=== PATIENT | female | born 1985 | race American Indian/Alaskan Native ===

== ENCOUNTER 2017-02-13 09:11 | Emergency (ER) | payer OTHER ==
[2017-02-13 09:13] VITALS: BMI 22.6
[2017-02-13 09:15] VITALS: BP 117/77; PULSE 111; RESP 19; TEMP 98.3; O2SAT 99
--- NOTE | 2017-02-13 11:13 | ED PDOC ---
HPI: Female Pain Time Seen by Provider: 02/13/17 09:33 Chief Complaint (Nursing): Abdominal Pain Chief Complaint (Provider): dysuria History Per: Patient History/Exam Limitations: no limitations Onset/Duration Of Symptoms: Days (x 1 week) Current Symptoms Are (Timing): Intermittent Episodes Additional Complaint(s): Jaleel Perdomo is a 31 year old female, with no previous medical history, who presents to the ED with complaints of dysuria associated with lower abdominal pain by her scar intermittently ongoing for the past week. Patient reports also developing dark vaginal spotting yesterday which resolved spontaneously. She denies any hematuria, discharge, nausea, vomiting or fevers. Patient states taking aspirin for pain with relief. PMD: none provided Last Menstral Period: January 17, 2017 Past Medical History Reviewed: Historical Data, Nursing Documentation, Vital Signs Vital Signs: Last Vital Signs Temp 98.3 F 02/13/17 09:13 Pulse 111 H 02/13/17 09:13 Resp 19 02/13/17 09:13 BP 117/77 02/13/17 09:13 Pulse Ox 99 02/13/17 09:13 - Medical History PMH: HTN, Chronic Kidney Disease - Surgical History Surgical History: - Family History Family History: States: Unknown Family Hx - Home Medications Home Medications: Ambulatory Orders Medication Instructions Recorded Cyclobenzaprine [Cyclobenzaprine 10 mg PO Q8 PRN #30 tab 08/28/16 HCl] Tramadol HCl [Ultram] 50 mg PO BID PRN #14 tablet 08/28/16 amLODIPine [Norvasc] 5 mg PO DAILY 08/28/16 amLODIPine [Norvasc] 5 mg PO DAILY #14 tab 08/28/16 - Allergies Allergies/Adverse Reactions: Allergies Allergy/AdvReac Type Severity Reaction Status Date / Time No Known Allergies Allergy Verified 05/23/15 16:54 Review of Systems ROS Statement: Except As Marked, All Systems Reviewed And Found Negative Constitutional: Negative for: Fever Gastrointestinal: Positive for: Abdominal Pain. Negative for: Nausea, Vomiting , Diarrhea Genitourinary Female: Positive for: Dysuria. Negative for: Hematuria Physical Exam - Reviewed Nursing Documentation Reviewed: Yes Vital Signs Reviewed: Yes - Physical Exam Appears: Positive for: Well, Non-toxic, No Acute Distress Head Exam: Positive for: ATRAUMATIC, NORMAL INSPECTION, NORMOCEPHALIC Skin: Positive for: Normal Color, Warm, Dry Cardiovascular/Chest: Positive for: Regular Rate, Rhythm Respiratory: Positive for: Normal Breath Sounds Gastrointestinal/Abdominal: Positive for: Bowel Sounds, Soft, Tenderness (mild LLQ sand suprapubic ). Negative for: Mass, Distended, Guarding, Rebound Neurologic/Psych: Positive for: Alert, Oriented - ECG O2 Sat by Pulse Oximetry: 99 (RA) Pulse Ox Interpretation: Normal Medical Decision Making Medical Decision Making: Initial Impression: UTI premenstrual pain, ovarian torsion Initial Plan: * urine dipstick * urine * US pelvis/transvag * Motrin 600 mg PO * reevaluation 11:40 Notified by RN that pt eloped after having ultrasound. Scribe Attestation: Documented by Gloria Francisco, acting as a scribe for Gloria Garcia MD. Provider Scribe Attestation: All medical record entries made by the Scribe were at my direction and personally dictated by me. I have reviewed the chart and agree that the record accurately reflects my personal performance of the history, physical exam, medical decision making, and the department course for this patient. I have also personally directed, reviewed, and agree with the discharge instructions and disposition.
== END 2017-02-13 12:00 | disposition left against medical advice (07) ==
LOC: H.ER 09:11
DX: N39.0 Urinary tract infection, site not specified (principal); N83 Noninflammatory disorders of ovary, fallopian tube and broad ligament; R10.9 Unspecified abdominal pain

== ENCOUNTER 2017-05-16 08:57 | Emergency (ER) | payer OTHER ==
[2017-05-16 09:14] VITALS: BMI 22.4
[2017-05-16 09:17] VITALS: BP 141/104; PULSE 73; RESP 20; TEMP 96.7; O2SAT 100
--- NOTE | 2017-05-16 09:54 | ED PDOC ---
HPI: CCC, URI, Sore Throat Time Seen by Provider: 05/16/17 09:30 Chief Complaint (Nursing): Cough, Cold, Congestion Chief Complaint (Provider): Nasal congestion History Per: Patient History/Exam Limitations: no limitations Onset/Duration Of Symptoms: Days Associated Symptoms: Nasal Congestion. denies: Fever, Sore Throat, Cough Additional Complaint(s): Patient is a 31 y/o female with a past medical history of hypertension presenting to the emergency department for nasal congestion ongoing for several days. Patient may have allergies but denies taking any medication. Also denies sore throat, fever, cough, headache, shortness of breath, or other complaints. PCP: none provided. Past Medical History Reviewed: Historical Data, Nursing Documentation, Vital Signs Vital Signs: Last Vital Signs Temp 96.7 F L 05/16/17 09:16 Pulse 73 05/16/17 09:16 Resp 20 05/16/17 09:16 BP 141/104 H 05/16/17 09:16 Pulse Ox 100 05/16/17 10:01 - Medical History PMH: HTN, Chronic Kidney Disease - Surgical History Surgical History: - Family History Family History: States: Unknown Family Hx - Social History Current smoker - smoking cessation education provided: Yes Ex-Smoker (has not smoked in the last 12 months): No Alcohol: Social Drugs: Denies - Home Medications Home Medications: Ambulatory Orders Medication Instructions Recorded Cyclobenzaprine [Cyclobenzaprine 10 mg PO Q8 PRN #30 tab 08/28/16 HCl] Tramadol HCl [Ultram] 50 mg PO BID PRN #14 tablet 08/28/16 amLODIPine [Norvasc] 5 mg PO DAILY 08/28/16 amLODIPine [Norvasc] 5 mg PO DAILY #14 tab 08/28/16 DiphenhydrAMINE [Benadryl] 25 mg PO HS #20 cap 05/16/17 Fluticasone Nasal [Flonase] 1 actuation NS DAILY #1 spr 05/16/17 - Allergies Allergies/Adverse Reactions: Allergies Allergy/AdvReac Type Severity Reaction Status Date / Time No Known Allergies Allergy Verified 05/16/17 09:27 Review of Systems ROS Statement: Except As Marked, All Systems Reviewed And Found Negative Constitutional: Negative for: Fever ENT: Positive for: Nose Congestion Respiratory: Negative for: Cough, Shortness of Breath Neurological: Negative for: Headache Physical Exam - Reviewed Nursing Documentation Reviewed: Yes Vital Signs Reviewed: Yes - Physical Exam Appears: Positive for: Well, Non-toxic, No Acute Distress Head Exam: Positive for: ATRAUMATIC, NORMAL INSPECTION, NORMOCEPHALIC Skin: Positive for: Normal Color, Warm, Dry Eye Exam: Positive for: Normal appearance ENT: Positive for: Normal ENT Inspection, Nasal Congestion. Negative for: Pharyngeal Erythema, Tonsillar Exudate Cardiovascular/Chest: Positive for: Regular Rate, Rhythm Respiratory: Negative for: Accessory Muscle Use, Respiratory Distress Extremity: Positive for: Normal ROM Neurologic/Psych: Positive for: Alert, Oriented (x3) - ECG O2 Sat by Pulse Oximetry: 100 (RA) Pulse Ox Interpretation: Normal Medical Decision Making Medical Decision Making: Time: 09:50 Initial impression: Nasal congestion. Allergic rhinitis. Initial plan: 25 mg of Benadryl 09:52 Upon provider reevaluation patient is feeling better, is medically stable, and requires no further treatment in the ED at this time. Patient will be discharged with Rx for Benadryl and Flonase. Counseling was provided and all questions were answered regarding diagnosis. There is agreement to discharge plan. Return symptoms persist or worsen. Clinical Impression: Rhinitis. Scribe Attestation: Documented by Swati Escobedo, acting as a scribe for Rita Tavarez MD. Provider Scribe Attestation: All medical record entries made by the Scribe were at my direction and personally dictated by me. I have reviewed the chart and agree that the record accurately reflects my personal performance of the history, physical exam, medical decision making, and the department course for this patient. I have also personally directed, reviewed, and agree with the discharge instructions and disposition. Disposition - Clinical Impression Clinical Impression: Rhinitis - Patient ED Disposition Is Patient to be Admitted: No - Disposition Referrals: [facility] [Outside] Disposition: Routine/Home Disposition Time: 09:52 Condition: STABLE Additional Instructions: Follow up with your PCP in 2-3 days. Prescriptions: DiphenhydrAMINE [Benadryl] 25 mg PO HS #20 cap Fluticasone Nasal [Flonase] 1 actuation NS DAILY #1 spr Instructions: Allergic Rhinitis (ED) Forms: [employer] (Kyrgyz)
== END 2017-05-16 10:05 | disposition home or self-care (01) ==
LOC: H.ER 08:57
DX: J30.9 Allergic rhinitis, unspecified (principal); I12.9 Hypertensive chronic kidney disease with stage 1 through stage 4 chronic kidney disease, or unspecified chronic kidney disease

== ENCOUNTER 2017-09-02 07:40 | Emergency (ER) | payer OTHER ==
[2017-09-02] MEDS ORDERED: Sodium Chloride 0.9% 1,000 ML IV STA (07:51)
[2017-09-02 07:55] VITALS: RESP 18; TEMP 98; O2SAT 99
--- NOTE | 2017-09-02 08:00 | ED PDOC ---
HPI: Abdomen Time Seen by Provider: 09/02/17 07:43 Chief Complaint (Nursing): Abdominal Pain Chief Complaint (Provider): Abdominal Pain History Per: Patient History/Exam Limitations: no limitations Onset/Duration Of Symptoms: Days (x 3) Additional Complaint(s): Jaleel is a 32 y/o female with a history of hypertension who presents to the ED c/o epigastric pain for the past 3 days with associated nausea and vomiting. Patient denies diarrhea or fever. She takes aspirin daily. PMD: Dr. Paul Kasper Past Medical History Reviewed: Historical Data, Nursing Documentation, Vital Signs Vital Signs: Last Vital Signs Temp 98 F 09/02/17 07:50 Pulse 80 09/02/17 07:50 Resp 18 09/02/17 07:50 BP 125/94 H 09/02/17 07:50 Pulse Ox 99 09/02/17 08:05 - Medical History PMH: HTN Denies: Chronic Kidney Disease - Surgical History Surgical History: - Family History Family History: States: Unknown Family Hx - Home Medications Home Medications: Ambulatory Orders Medication Instructions Recorded Cyclobenzaprine [Cyclobenzaprine 10 mg PO Q8 PRN #30 tab 08/28/16 HCl] Tramadol HCl [Ultram] 50 mg PO BID PRN #14 tablet 08/28/16 amLODIPine [Norvasc] 5 mg PO DAILY 08/28/16 amLODIPine [Norvasc] 5 mg PO DAILY #14 tab 08/28/16 DiphenhydrAMINE [Benadryl] 25 mg PO HS #20 cap 05/16/17 Fluticasone Nasal [Flonase] 1 actuation NS DAILY #1 spr 05/16/17 Famotidine [Pepcid] 20 mg PO Q12 #20 tab 09/02/17 - Allergies Allergies/Adverse Reactions: Allergies Allergy/AdvReac Type Severity Reaction Status Date / Time No Known Allergies Allergy Verified 05/16/17 09:27 Review of Systems ROS Statement: Except As Marked, All Systems Reviewed And Found Negative Constitutional: Negative for: Fever Gastrointestinal: Positive for: Nausea, Vomiting, Abdominal Pain. Negative for : Diarrhea Physical Exam - Reviewed Nursing Documentation Reviewed: Yes Vital Signs Reviewed: Yes - Physical Exam Appears: Positive for: Non-toxic, No Acute Distress Skin: Positive for: Normal Color Eye Exam: Positive for: Normal appearance Respiratory: Positive for: Normal Breath Sounds. Negative for: Wheezing, Respiratory Distress Gastrointestinal/Abdominal: Positive for: Normal Exam, Bowel Sounds, Soft, Tenderness (epigastric). Negative for: Guarding, Rebound Extremity: Positive for: Normal ROM. Negative for: Swelling Neurologic/Psych: Positive for: Alert, Oriented - Laboratory Results Result Diagrams: 09/02/17 08:11 09/02/17 08:11 - ECG O2 Sat by Pulse Oximetry: 99 (RA) Pulse Ox Interpretation: Normal Medical Decision Making Medical Decision Making: Time: 7:51 Initial Impression: Gastritis / Peptic Ulcer Disease Initial Plan: --CMP --CBC --Pepcid --Zofran --Urine Dip Scribe Attestation: Documented by Alex Crook, acting as a scribe for Odin Vanegas MD Provider Scribe Attestation: All medical record entries made by the Scribe were at my direction and personally dictated by me. I have reviewed the chart and agree that the record accurately reflects my personal performance of the history, physical exam, medical decision making, and the department course for this patient. I have also personally directed, reviewed, and agree with the discharge instructions and disposition. Disposition - Clinical Impression Clinical Impression: Gastritis - Patient ED Disposition Is Patient to be Admitted: No - Disposition Referrals: [facility] [Outside] Disposition: Routine/Home Disposition Time: 09:29 Condition: FAIR Prescriptions: Famotidine [Pepcid] 20 mg PO Q12 #20 tab Instructions: Gastritis (ED) Forms: [employer] (Kittitian)
[2017-09-02 08:41] LABS: ALB/GLOB RATIO 1.1 (1.0-2.1); ALBUMIN 3.9 g/dL (3.5-5.0); ALT/SGPT 26 U/L (9-52); AST/SGOT 41 U/L (14-36); BLOOD UREA NITROGEN 14 mg/dl (7-17); CALCIUM 8.8 mg/dL (8.4-10.2); GFR AFRICAN-AMERICAN > 60; GFR NON-AFRICAN AMERICAN 57
[2017-09-02 08:50] LABS: BASO % 0.7 % (0.0-2.0); EOS # 0.3 K/uL (0.0-0.7); EOS % 5.4 % (0.0-4.0); LYMPH # 2.6 K/uL (1.0-4.3); LYMPH % 42.3 % (20.0-40.0); MEAN CORPUSCULAR HEMOGLOBIN 27.8 pg (27.0-31.0); MEAN CORPUSCULAR HGB CONC 32.7 g/dL (33.0-37.0); MEAN PLATELET VOLUME 8.5 fl (7.2-11.7); MONO # 0.5 K/uL (0.0-0.8); MONO % 8.6 % (0.0-10.0); NEUT # 2.6 K/uL (1.8-7.0); NRBC % 0.2 % (0.0-0.0); RBC 4.67 Mil/uL (3.80-5.20); RED CELL DISTRIBUTION WIDTH 13.8 % (11.5-14.5); WHITE BLOOD COUNT 6.1 K/uL (4.8-10.8)
[2017-09-02 09:41] VITALS: BP 113/74; PULSE 57
== END 2017-09-02 09:39 | disposition home or self-care (01) ==
LOC: H.ER 07:40
DX: K29.70 Gastritis, unspecified, without bleeding (principal); I10 Essential (primary) hypertension
CPT/HCPCS: 80053; 81025; 85025; 96361; 96374; 96375; 99284; J2405; J7040

== ENCOUNTER 2017-12-20 12:21 | Emergency (ER) | payer OTHER ==
[2017-12-20 12:25] VITALS: BMI 21.2
[2017-12-20 12:27] VITALS: BP 133/100; PULSE 87; RESP 20; TEMP 98.6; O2SAT 99
--- NOTE | 2017-12-20 12:47 | ED PDOC ---
HPI: Female Pain Time Seen by Provider: 12/20/17 12:43 Chief Complaint (Nursing): Female Genitourinary Chief Complaint (Provider): vaginal discharge History Per: Patient (32 y/o female here with vaginal discharge foul smelling. Denies any dysuria/urinary frequency/lower abd pain. Notes symptoms began after protected intercourse during menses. Denies any fevers/chills/abd pain/ back pain.) Past Medical History Reviewed: Historical Data, Nursing Documentation, Vital Signs Vital Signs: Last Vital Signs Temp 98.6 F 12/20/17 12:26 Pulse 87 12/20/17 12:26 Resp 20 12/20/17 12:26 BP 133/100 H 12/20/17 12:26 Pulse Ox 99 12/20/17 12:26 - Medical History PMH: HTN Denies: Chronic Kidney Disease - Surgical History Surgical History: - Family History Family History: States: Unknown Family Hx - Home Medications Home Medications: Ambulatory Orders Medication Instructions Recorded Cyclobenzaprine [Cyclobenzaprine 10 mg PO Q8 PRN #30 tab 08/28/16 HCl] Tramadol HCl [Ultram] 50 mg PO BID PRN #14 tablet 08/28/16 amLODIPine [Norvasc] 5 mg PO DAILY 08/28/16 amLODIPine [Norvasc] 5 mg PO DAILY #14 tab 08/28/16 DiphenhydrAMINE [Benadryl] 25 mg PO HS #20 cap 05/16/17 Fluticasone Nasal [Flonase] 1 actuation NS DAILY #1 spr 05/16/17 Famotidine [Pepcid] 20 mg PO Q12 #20 tab 09/02/17 Metronidazole [Metrogel-Vaginal] 1 unit VG DAILY #5 gel 12/20/17 - Allergies Allergies/Adverse Reactions: Allergies Allergy/AdvReac Type Severity Reaction Status Date / Time No Known Allergies Allergy Verified 05/16/17 09:27 Review of Systems ROS Statement: Except As Marked, All Systems Reviewed And Found Negative Genitourinary Female: Positive for: Vaginal Discharge Physical Exam - Reviewed Nursing Documentation Reviewed: Yes Vital Signs Reviewed: Yes - Physical Exam Appears: Positive for: Well, Non-toxic, No Acute Distress Head Exam: Positive for: ATRAUMATIC, NORMAL INSPECTION, NORMOCEPHALIC Skin: Positive for: Normal Color, Warm, DRY Eye Exam: Positive for: EOMI, Normal appearance, PERRL ENT: Positive for: Normal ENT Inspection Neck: Positive for: Normal, Painless ROM Cardiovascular/Chest: Positive for: Regular Rate, Rhythm Respiratory: Positive for: CNT, Normal Breath Sounds Gastrointestinal/Abdominal: Positive for: Normal Exam, Soft Pelvic Exam: Positive for: Other (thin rg vaginal discharge noted. Nontender adnexa. Normal cervix noted.) Back: Positive for: Normal Inspection Extremity: Positive for: Normal ROM Neurologic/Psych: Positive for: Alert, Oriented - Laboratory Results Urine POC: Negative Urine dip results: Positive for: Leukocyte Esterase (trace). Negative for: Blood, Nitrate, Ketones, Glucose, Bilirubin, Protein - ECG O2 Sat by Pulse Oximetry: 99 - Progress ED Course And Treament: GC sent genital cx sent Disposition - Clinical Impression Clinical Impression: Bacterial vaginosis - Patient ED Disposition Is Patient to be Admitted: No - Disposition [facility]] Disposition Time: 12:56 Condition: FAIR Prescriptions: Metronidazole [Metrogel-Vaginal] 1 unit VG DAILY #5 gel Instructions: Bacterial Vaginosis (DC) Forms: [employer] (Mohawk)
== END 2017-12-20 13:43 | disposition home or self-care (01) ==
LOC: H.ER 12:21
DX: B96.89 Other specified bacterial agents as the cause of diseases classified elsewhere (principal); N76.0 Acute vaginitis; I10 Essential (primary) hypertension

== ENCOUNTER 2018-01-08 08:02 | Emergency (ER) | payer OTHER ==
[2018-01-08 08:02] VITALS: BMI 21.2
[2018-01-08 08:08] VITALS: BP 128/88; PULSE 70; RESP 20; TEMP 98.2; O2SAT 100
--- NOTE | 2018-01-08 08:58 | ED PDOC ---
HPI: Abdomen Time Seen by Provider: 01/08/18 08:36 Chief Complaint (Nursing): Abdominal Pain Chief Complaint (Provider): abdominal pain History Per: Patient History/Exam Limitations: no limitations Onset/Duration Of Symptoms: Days (x1 week ), Intermittent Episodes Quality Of Discomfort: "Pain" Associated Symptoms: Nausea. denies: Fever, Chills, Vomiting, Diarrhea, Urinary Symptoms (dysuria) Additional Complaint(s): Jaleel Perdomo is a 32 year old female, with a past medical history of HTN, who presents to the emergency department complaining of an intermittent abdominal pain associated with nausea and headache onset for x1 week. Patient reports she was recently treated for bacterial vaginosis last week. She denies any fever, chills, hematuria, vaginal bleeding or discharge. No further medical complaints. PMD: None provided. Abnormal Vaginal Bleeding: No Past Medical History Reviewed: Historical Data, Nursing Documentation, Vital Signs Vital Signs: Last Vital Signs Temp 98.2 F 01/08/18 08:07 Pulse 70 01/08/18 08:07 Resp 20 01/08/18 08:07 BP 128/88 01/08/18 08:07 Pulse Ox 100 01/08/18 11:57 - Medical History PMH: HTN Denies: Chronic Kidney Disease - Surgical History Surgical History: - Family History Family History: States: Unknown Family Hx - Home Medications Home Medications: Ambulatory Orders Medication Instructions Recorded amLODIPine [Norvasc] 5 mg PO DAILY #14 tab 08/28/16 - Allergies Allergies/Adverse Reactions: Allergies Allergy/AdvReac Type Severity Reaction Status Date / Time No Known Allergies Allergy Verified 01/08/18 08:28 Review of Systems ROS Statement: Except As Marked, All Systems Reviewed And Found Negative Constitutional: Negative for: Fever, Chills Gastrointestinal: Positive for: Nausea, Abdominal Pain. Negative for: Vomiting , Diarrhea Genitourinary Female: Negative for: Hematuria, Vaginal Discharge, Vaginal Bleeding Neurological: Positive for: Headache Physical Exam - Reviewed Nursing Documentation Reviewed: Yes Vital Signs Reviewed: Yes - Physical Exam Appears: Positive for: Non-toxic, No Acute Distress Head Exam: Positive for: ATRAUMATIC, NORMOCEPHALIC Skin: Positive for: Normal Color, Warm, Dry Eye Exam: Positive for: Normal appearance Neck: Positive for: Painless ROM Cardiovascular/Chest: Positive for: Regular Rate, Rhythm. Negative for: Murmur Respiratory: Positive for: Normal Breath Sounds. Negative for: Respiratory Distress Gastrointestinal/Abdominal: Positive for: Tenderness (mild left suprapubic ) Back: Positive for: Normal Inspection. Negative for: L CVA Tenderness, R CVA Tenderness, Vertebral Tenderness Extremity: Positive for: Normal ROM (upper and lower extremity). Negative for: Deformity, Swelling Neurologic/Psych: Positive for: Alert, Oriented. Negative for: Motor/Sensory Deficits - ECG O2 Sat by Pulse Oximetry: 100 (RA) Pulse Ox Interpretation: Normal Medical Decision Making Medical Decision Making: Initial Impression: abdominal pain Initial Plan: --urine dipstick --Urine --Pelvis/Transvag US [US] --Reevaluation 11:55 -At this time, patient left before treatment completed Scribe Attestation: Documented by Jey Ramirez, acting as a scribe for Gloria Garcia MD Provider Scribe Attestation: All medical record entries made by the Scribe were at my direction and personally dictated by me. I have reviewed the chart and agree that the record accurately reflects my personal performance of the history, physical exam, medical decision making, and the department course for this patient. I have also personally directed, reviewed, and agree with the discharge instructions and disposition. Disposition - Clinical Impression Clinical Impression: Abdominal pain in female - Disposition Disposition: Left W/O Treatment Disposition Time: 11:55 Condition: UNKNOWN Forms: [employer] (Malagasy)
--- NOTE | 2018-01-08 12:09 | US ---
HISTORY: Left pelvic pain. Menstrual status: LMP 12/12/2017. COMPARISON: 02/13/2017 TECHNIQUE: Transabdominal only. Real-time technique with 2D, duplex and color Doppler FINDINGS: UTERUS: Measures 4.8 x 7.7 x 7.7 cm. Normal in size and appearance. No fibroid or other mass lesion seen. ENDOMETRIUM: Measures 2.6 mm in diameter. Unremarkable. CERVIX: No cervical abnormality identified. RIGHT OVARY: Measures 2.7 x 3.8 cm. No solid mass. Normal flow. Multiple subcentimeter follicles. LEFT OVARY: Measures 3.2 x 1.7 cm. No solid mass. Normal flow. Multiple subcentimeter follicles. FREE FLUID: No significant free fluid noted. OTHER FINDINGS: None. IMPRESSION: No significant or acute findings to account for/ related to the clinical presentation.
== END 2018-01-08 12:15 | disposition left against medical advice (07) ==
LOC: H.ER 08:02
DX: R10.9 Unspecified abdominal pain (principal); R11.0 Nausea; I10 Essential (primary) hypertension

== ENCOUNTER 2018-02-27 07:38 | Emergency (ER) | payer OTHER ==
[2018-02-27 07:44] VITALS: BMI 20.9
[2018-02-27 07:46] VITALS: O2SAT 99
--- NOTE | 2018-02-27 08:40 | ED PDOC ---
Syncope/Near Syncope/Dizziness Time Seen by Provider: 02/27/18 08:03 Chief Complaint (Nursing): Dizziness/Lightheaded Chief Complaint (Provider): Dizziness/Lightheaded History Per: Patient History/Exam Limitations: no limitations Onset/Duration Of Symptoms: Days (x1 week), Intermittent Episodes Activity At Onset Of Symptoms: Standing Associated Symptoms Preceding Syncopal Episode: No Predromal Symptoms (Sudden Onset) Seizure Or Post-ictal Symptoms: None Fall Associated With With Symptoms: No Additional Complaint(s): Jaleel Perdomo is a 32 y/o female with history of HTN who presents to the ED with complaints of intermittent dizziness associated with nausea onset for x1 week. Patient states dizziness occurs after standing for long periods of time and is alleviated with rest. She does not describe it as room spinning. She denies any fever, chills, dysuria, headache, chest pain, shortness of breath, abdominal pain, back pain, vomiting, or diarrhea. Her last normal menstrual period was 2 weeks ago and is currently taking depo-shots. She takes Norvasc, 10 mg to treat her HTN. PMD: Dr. Lo Past Medical History Reviewed: Historical Data, Nursing Documentation, Vital Signs Vital Signs: Last Vital Signs Temp 98.2 F 02/27/18 07:44 Pulse 75 02/27/18 07:44 Resp 16 02/27/18 07:44 BP 125/89 02/27/18 07:44 Pulse Ox 99 02/27/18 07:44 - Medical History PMH: HTN Denies: Chronic Kidney Disease - Surgical History Surgical History: - Family History Family History: States: Unknown Family Hx - Social History Current smoker - smoking cessation education provided: Yes Alcohol: None Drugs: Denies - Home Medications Home Medications: Ambulatory Orders Medication Instructions Recorded amLODIPine [Norvasc] 5 mg PO DAILY #14 tab 08/28/16 - Allergies Allergies/Adverse Reactions: Allergies Allergy/AdvReac Type Severity Reaction Status Date / Time No Known Allergies Allergy Verified 01/08/18 08:28 Review of Systems ROS Statement: Except As Marked, All Systems Reviewed And Found Negative Constitutional: Negative for: Fever, Chills Cardiovascular: Negative for: Chest Pain Respiratory: Negative for: Shortness of Breath Gastrointestinal: Positive for: Nausea. Negative for: Vomiting, Abdominal Pain , Diarrhea Genitourinary Female: Negative for: Dysuria Musculoskeletal: Negative for: Back Pain Neurological: Positive for: Dizziness. Negative for: Headache (intermittent) Physical Exam - Reviewed Nursing Documentation Reviewed: Yes Vital Signs Reviewed: Yes - Physical Exam Appears: Positive for: Non-toxic, No Acute Distress Head Exam: Positive for: ATRAUMATIC, NORMOCEPHALIC Skin: Positive for: Normal Color, Warm, Dry Eye Exam: Positive for: EOMI, Normal appearance, PERRL Neck: Positive for: Normal, Painless ROM, Supple Cardiovascular/Chest: Positive for: Regular Rate, Rhythm. Negative for: Murmur Respiratory: Positive for: Normal Breath Sounds. Negative for: Respiratory Distress Gastrointestinal/Abdominal: Positive for: Normal Exam, Soft. Negative for: Tenderness Back: Positive for: Normal Inspection. Negative for: L CVA Tenderness, R CVA Tenderness Extremity: Positive for: Normal ROM (upper and lower extremities). Negative for : Pedal Edema, Deformity Neurologic/Psych: Positive for: Alert, Oriented, Gait (steady). Negative for: Motor/Sensory Deficits - Laboratory Results Result Diagrams: 02/27/18 09:42 02/27/18 09:42 - ECG O2 Sat by Pulse Oximetry: 99 (RA) Pulse Ox Interpretation: Normal Medical Decision Making Medical Decision Making: Time: 08:45 Initial Impression: Dizziness Initial Plan: --EKG --CMP --Magnesium --Phosphorous -- test --ED urine dipstick --EDNURTX --CBC with differential --Sodium chloride 0.9% 1,000 ml IV 1,000 mls/hr Scribe Attestation: Documented by Landen Garcia, acting as a scribe for Ashley Ross MD Provider Scribe Attestation: All medical record entries made by the Scribe were at my direction and personally dictated by me. I have reviewed the chart and agree that the record accurately reflects my personal performance of the history, physical exam, medical decision making, and the department course for this patient. I have also personally directed, reviewed, and agree with the discharge instructions and disposition. Disposition - Clinical Impression Clinical Impression: Dizziness - Patient ED Disposition Is Patient to be Admitted: No Doctor Will See Patient In The: Office Counseled Patient/Family Regarding: Diagnosis, Need For Followup - Disposition Referrals: [facility] [Outside] Disposition: Routine/Home Disposition Time: 10:00 Condition: STABLE Instructions: Dizziness, Nonvertigo, (DC) Forms: [employer] (Nepalese), [facility] ED School/Work Excuse - POA Present On Arrival: None
[2018-02-27] MEDS ORDERED: Sodium Chloride 0.9% 1,000 ML IV STA (08:46)
[2018-02-27 09:45] LABS: BASO # 0.1 K/uL (0.0-0.2); BASO % 1.7 % (0.0-2.0); EOS # 0.2 K/uL (0.0-0.7); EOS % 3.4 % (0.0-4.0); HEMOGLOBIN 14.2 g/dL (12.0-16.0); LYMPH # 2.4 K/uL (1.0-4.3); LYMPH % 36.3 % (20.0-40.0); MEAN CELL VOLUME 86.6 fl (81.0-99.0); MEAN CORPUSCULAR HEMOGLOBIN 28.4 pg (27.0-31.0); MEAN CORPUSCULAR HGB CONC 32.8 g/dL (33.0-37.0); MEAN PLATELET VOLUME 8.4 fl (7.2-11.7); MONO # 0.4 K/uL (0.0-0.8); MONO % 6.6 % (0.0-10.0); NEUT # 3.4 K/uL (1.8-7.0); NRBC % 0.1 % (0.0-0.0); RBC 5.01 Mil/uL (3.80-5.20); RED CELL DISTRIBUTION WIDTH 13.9 % (11.5-14.5); WHITE BLOOD COUNT 6.6 K/uL (4.8-10.8)
[2018-02-27 10:05] LABS: ALB/GLOB RATIO 1.1 (1.0-2.1); ALBUMIN 4.6 g/dL (3.5-5.0); ALT/SGPT 23 U/L (9-52); AST/SGOT 29 U/L (14-36); BLOOD UREA NITROGEN 19 mg/dl (7-17); CALCIUM 9.2 mg/dL (8.4-10.2); GFR AFRICAN-AMERICAN > 60; GFR NON-AFRICAN AMERICAN 57
--- NOTE | 2018-02-27 11:01 | CARD ---
APPROVED REPORT EKG Measurement Heart [id number] <Conclusion> Sinus rhythm with marked sinus arrhythmia Otherwise normal ECG
[2018-02-27 18:15] VITALS: BP 116/79; PULSE 68; RESP 14; TEMP 98
== END 2018-02-27 10:37 | disposition home or self-care (01) ==
LOC: H.ER 07:38
DX: R42 Dizziness and giddiness (principal); F17.200 Nicotine dependence, unspecified, uncomplicated; I10 Essential (primary) hypertension
CPT/HCPCS: 80053; 81025; 82948; 83735; 84100; 85025; 93005; 99284; J7030

== ENCOUNTER 2018-04-20 08:58 | Emergency (ER) | payer OTHER ==
[2018-04-20 08:59] VITALS: BMI 20.9
[2018-04-20 09:09] VITALS: RESP 18; TEMP 98.2
[2018-04-20 10:36] LABS: SQUAMOUS EPITHIAL 15 /hpf (0-5); URINE BACTERIA MOD (<OCC); URINE BILIRUBIN NEGATIVE (NEGATIVE); URINE BLOOD SMALL (NEGATIVE); URINE CLARITY CLOUDY (Clear); URINE COLOR YELLOW (YELLOW); URINE GLUCOSE (UA) NEG (Normal); URINE HYALINE CAST 0-2 /hpf (0-2); URINE LEUKOCYTE ESTERASE SMALL Leu/uL (Negative); URINE PROTEIN 30 mg/dL (NEGATIVE); URINE UROBILINOGEN 0.2-1.0 mg/dL (0.2-1.0)
[2018-04-20 10:52] VITALS: BP 130/82; PULSE 52; O2SAT 98
--- NOTE | 2018-04-20 11:57 | ED PDOC ---
HPI: Female Pain Time Seen by Provider: 04/20/18 09:15 Chief Complaint (Nursing): Female Genitourinary Chief Complaint (Provider): Vaginal Irritation History Per: Patient History/Exam Limitations: no limitations Onset/Duration Of Symptoms: Days (x5) Current Symptoms Are (Timing): Still Present Additional Complaint(s): 32-year-old female presenting for evaluation of vaginal irritation and foul smell x5 days. Patient states she thinks its BV and has had BV in the past. She denies any vaginal bleeding. Patient is on the Deepo shot and LMP was 3 months ago. No blood per vagina. NO urinary symptoms. NO abdominal pain. Pt states she is in a monogamous relationship and does not have a history of STI. Otherwise no nausea, vomiting, abdominal pain, or dysuria. Past Medical History Reviewed: Historical Data, Nursing Documentation, Vital Signs Vital Signs: Last Vital Signs Temp 98.2 F 04/20/18 10:49 Pulse 52 L 04/20/18 10:49 Resp 18 04/20/18 10:49 BP 130/82 04/20/18 10:49 Pulse Ox 98 04/20/18 10:49 - Medical History PMH: HTN Denies: Chronic Kidney Disease - Surgical History Surgical History: - Family History Family History: States: Unknown Family Hx - Home Medications Home Medications: Ambulatory Orders Medication Instructions Recorded amLODIPine [Norvasc] 5 mg PO DAILY #14 tab 08/28/16 Metronidazole 500 mg PO BID #14 tablet 04/20/18 metroNIDAZOLE [Flagyl] 500 mg PO BID #14 tab 04/20/18 - Allergies Allergies/Adverse Reactions: Allergies Allergy/AdvReac Type Severity Reaction Status Date / Time No Known Allergies Allergy Verified 04/20/18 09:26 Review of Systems ROS Statement: Except As Marked, All Systems Reviewed And Found Negative Gastrointestinal: Negative for: Nausea, Vomiting, Abdominal Pain Genitourinary Female: Positive for: Other (vaginal irritation and foul smell). Negative for: Dysuria, Vaginal Bleeding Physical Exam - Reviewed Nursing Documentation Reviewed: Yes Vital Signs Reviewed: Yes - Physical Exam Appears: Positive for: Non-toxic, No Acute Distress Head Exam: Positive for: ATRAUMATIC, NORMAL INSPECTION, NORMOCEPHALIC Skin: Positive for: Normal Color, Warm, Dry. Negative for: Rash Eye Exam: Positive for: EOMI, Normal appearance, PERRL Neck: Positive for: Normal, Painless ROM, Supple Cardiovascular/Chest: Positive for: Regular Rate, Rhythm. Negative for: Murmur Respiratory: Positive for: Normal Breath Sounds. Negative for: Respiratory Distress Gastrointestinal/Abdominal: Positive for: Normal Exam, Soft. Negative for: Tenderness Pelvic Exam: Positive for: Discharge (white), Other (RN Felisha was present as airplane refueler; exam significant for vaginal irritation with white discharge, non purulent in appearance, not yeast in appearance) Back: Positive for: Normal Inspection. Negative for: L CVA Tenderness, R CVA Tenderness, Vertebral Tenderness Extremity: Positive for: Normal ROM. Negative for: Deformity Neurologic/Psych: Positive for: Alert, Oriented (x3). Negative for: Motor/ Sensory Deficits - ECG O2 Sat by Pulse Oximetry: 98 (RA) Pulse Ox Interpretation: Normal Medical Decision Making Medical Decision Making: Plan: Uncomplicated bacterial vaginosis. UA and Upreg negative. Options for topical vs oral medications discussed with the patient. Pt prefers oral medication and was given eRx for Metronidazole. Cultures sent. Patient to be contacted with culture results. Patient advised to follow up with PMD if symptoms not improved. Scribe Attestation: Documented by Jaison Stewart, acting as a scribe for Kirti Hopkins MD. Provider Scribe Attestation: All medical record entries made by the Scribe were at my direction and personally dictated by me. I have reviewed the chart and agree that the record accurately reflects my personal performance of the history, physical exam, medical decision making, and the department course for this patient. I have also personally directed, reviewed, and agree with the discharge instructions and disposition. Disposition - Clinical Impression Clinical Impression: Female genitourinary symptoms - Disposition Referrals: [facility] [Provider Group] Disposition: Hospice - Home Disposition Time: 10:30 Condition: STABLE Additional Instructions: Follow up with patient educator if symptoms not improved with oral medication. Return to the emergency department if symptoms worsen or new symptoms develop. Prescriptions: Metronidazole 500 mg PO BID #14 tablet metroNIDAZOLE [Flagyl] 500 mg PO BID #14 tab Forms: [employer] ([place])
== END 2018-04-20 10:48 | disposition home or self-care (01) ==
LOC: H.ER 08:58
DX: N89.8 Other specified noninflammatory disorders of vagina (principal); I10 Essential (primary) hypertension

== ENCOUNTER 2018-07-30 21:40 | Emergency (ER) | payer OTHER ==
[2018-07-30 21:40] VITALS: BMI 20.9
[2018-07-30 23:02] VITALS: BP 132/89; PULSE 74; RESP 18; TEMP 98.6; O2SAT 100
[2018-07-31 00:02] LABS: BASO # 0.1 K/uL (0.0-0.2); BASO % 0.9 % (0.0-2.0); EOS # 0.2 K/uL (0.0-0.7); EOS % 2.1 % (0.0-4.0); HEMOGLOBIN 13.3 g/dL (12.0-16.0); LYMPH # 2.6 K/uL (1.0-4.3); LYMPH % 27.6 % (20.0-40.0); MEAN CELL VOLUME 86.6 fl (81.0-99.0); MEAN CORPUSCULAR HEMOGLOBIN 28.1 pg (27.0-31.0); MEAN CORPUSCULAR HGB CONC 32.4 g/dL (33.0-37.0); MEAN PLATELET VOLUME 7.9 fl (7.2-11.7); MONO # 0.6 K/uL (0.0-0.8); MONO % 6.5 % (0.0-10.0); NEUT # 5.9 K/uL (1.8-7.0); NEUT % 62.9 % (50.0-75.0); RBC 4.72 Mil/uL (3.80-5.20); RED CELL DISTRIBUTION WIDTH 14.4 % (11.5-14.5); WHITE BLOOD COUNT 9.3 K/uL (4.8-10.8)
[2018-07-31 00:10] LABS: BLOOD UREA NITROGEN 19 mg/dl (7-17); GFR NON-AFRICAN AMERICAN 57
--- NOTE | 2018-07-31 00:49 | ED PDOC ---
HPI: Chest Pain Time Seen by Provider: 07/30/18 23:36 Chief Complaint (Nursing): GI Problem Chief Complaint (Provider): Chest pain History Per: Patient History/Exam Limitations: no limitations Onset/Duration Of Symptoms: Days Current Symptoms Are (Timing): Still Present Additional Complaint(s): 33yo female, with history of hypertension, comes to ER rep orting chest pain. Patient states she has had recurrent diarrhea for the past 2- 3 weeks and when she went for a check up with an associate of Dr. Lacy, she mentioned her diarrhea and was informed by that provider that she should get outpatient testing including HIV testing. Patient denies any risk factors for HIV; she states she has been anxious since her evaluation and has been unable to sleep at night. Patient developed chest pain today and states this might be due to her concerns about being HIV positive. She otherwise denies any fever, chills, nausea, vomiting, or diaphoresis. No additional complaints. PMD: Dr. Lacy Past Medical History Reviewed: Historical Data Vital Signs: Last Vital Signs Temp 98.6 F 07/30/18 22:57 Pulse 74 07/30/18 22:57 Resp 18 07/30/18 22:57 BP 132/89 07/30/18 22:57 Pulse Ox 100 07/30/18 22:57 - Medical History PMH: HTN Denies: Chronic Kidney Disease - Surgical History Surgical History: - Family History Family History: States: No Known Family Hx - Social History Current smoker - smoking cessation education provided: No Alcohol: None Drugs: Denies - Home Medications Home Medications: Ambulatory Orders Medication Instructions Recorded amLODIPine [Norvasc] 5 mg PO DAILY #14 tab 08/28/16 Metronidazole 500 mg PO BID #14 tablet 04/20/18 metroNIDAZOLE [Flagyl] 500 mg PO BID #14 tab 04/20/18 - Allergies Allergies/Adverse Reactions: Allergies Allergy/AdvReac Type Severity Reaction Status Date / Time No Known Allergies Allergy Verified 07/30/18 22:57 Review of Systems ROS Statement: Except As Marked, All Systems Reviewed And Found Negative Constitutional: Negative for: Fever, Chills, Sweats Cardiovascular: Positive for: Chest Pain Gastrointestinal: Negative for: Nausea, Vomiting Psych: Positive for: Anxiety Physical Exam - Reviewed Nursing Documentation Reviewed: Yes Vital Signs Reviewed: Yes - Physical Exam Appears: Positive for: Non-toxic, No Acute Distress Head Exam: Positive for: ATRAUMATIC, NORMAL INSPECTION, NORMOCEPHALIC Skin: Positive for: Normal Color, Warm, DRY Eye Exam: Positive for: EOMI, Normal appearance, PERRL ENT: Positive for: Normal ENT Inspection Neck: Positive for: Normal, Painless ROM, Supple Cardiovascular/Chest: Positive for: Regular Rate, Rhythm, Chest Non Tender. Negative for: Murmur Respiratory: Positive for: Normal Breath Sounds. Negative for: Respiratory Distress Gastrointestinal/Abdominal: Positive for: Normal Exam, Soft Back: Positive for: Normal Inspection Extremity: Positive for: Normal ROM Neurologic/Psych: Positive for: Alert, Oriented. Negative for: Motor/Sensory Deficits - Laboratory Results Result Diagrams: 07/30/18 23:58 07/30/18 23:58 - ECG O2 Sat by Pulse Oximetry: 100 (RA) Pulse Ox Interpretation: Normal Medical Decision Making Medical Decision Making: Impression: 33yo female with chest pain due to anxiety Plan: -- Labs -- EKG -- Chest x-ray -- Rapid HIV 0051 Labs reviewed and no clinically significant abnormalities noted. Rapid HIV noted to be non-reactive. Patient informed of lab findings; on reassessment, she reports feeling better. Patient stable for discharge home and instructed to follow up with PMD in 2-3 days. Diagnosis: Anxiety, atypical chest pain Scribe Attestation: Documented by Keli Jules, acting as a scribe for Hiren Santamaria MD. Provider Scribe Attestation: All medical record entries made by the Scribe were at my direction and personall y dictated by me. I have reviewed the chart and agree that the record accurately reflects my personal performance of the history, physical exam, medical decision making, and the department course for this patient. I have also personally directed, reviewed, and agree with the discharge instructions and disposition. Disposition - Clinical Impression Clinical Impression: Anxiety, Atypical chest pain - Disposition Disposition: Routine/Home Disposition Time: 01:06 Condition: STABLE Instructions: Chest Pain That Is Not Caused by the Heart (DC), Anxiety, Adult (DC) Forms: [employer] (T[place])
--- NOTE | 2018-07-31 10:23 | CARD ---
APPROVED REPORT Date of service: 07/30/2018 EKG Measurement Heart [id number] <Conclusion> Normal sinus rhythm Normal Electrocardiogram
== END 2018-07-31 01:04 | disposition home or self-care (01) ==
LOC: H.ER 21:40
DX: R07.89 Other chest pain (principal); F41.9 Anxiety disorder, unspecified

== ENCOUNTER 2018-08-10 14:14 | Emergency (ER) | payer OTHER ==
[2018-08-10 14:14] VITALS: BMI 20.9
--- NOTE | 2018-08-10 16:02 | ED PDOC ---
HPI: Chest Pain Time Seen by Provider: 08/10/18 14:59 Chief Complaint (Nursing): Chest Pain Chief Complaint (Provider): chest pain History Per: Patient Additional Complaint(s): 33 y/o F with HTN who presents with Chest pain x 3-4 days. Pt was seen in ER for similar complaints on 07/30 and had negative EKG and troponin at the time. She was felt to have anxiety in the setting of thinking that she might have HIV. Pt states that her chest pain improved but returned about 3 - 4 days ago. She states that it is Left sided, intermittent "pinching" that radiates to her Left back w/ some arm numbness. Occasional associated SOB but denies dizziness. The pain is not related to eating or movement. Denies SOB, dizziness, palpitations. She states that she has been under great stress having lost a friend of hers 4 days ago to a heart attack. Denies suicidal/homicidal ideations or visual/auditory hallucinations. - Risk Factors PE Risk Factors: Neg: Extremity Immobilization/Fx Past Medical History Vital Signs: Last Vital Signs Temp 98.1 F 08/10/18 14:19 Pulse 16 L 08/10/18 14:19 Resp 88 H 08/10/18 14:19 BP 128/97 H 08/10/18 14:19 Pulse Ox 100 08/10/18 14:19 - Medical History PMH: HTN Denies: Chronic Kidney Disease - Surgical History Surgical History: - Family History Family History: States: Unknown Family Hx - Home Medications Home Medications: Ambulatory Orders Medication Instructions Recorded amLODIPine [Norvasc] 5 mg PO DAILY #14 tab 08/28/16 Metronidazole 500 mg PO BID #14 tablet 04/20/18 metroNIDAZOLE [Flagyl] 500 mg PO BID #14 tab 04/20/18 - Allergies Allergies/Adverse Reactions: Allergies Allergy/AdvReac Type Severity Reaction Status Date / Time No Known Allergies Allergy Verified 07/30/18 22:57 Review of Systems Constitutional: Negative for: Fever, Chills Cardiovascular: Positive for: Chest Pain. Negative for: Palpitations, Light Headedness Respiratory: Negative for: Cough, Shortness of Breath Gastrointestinal: Negative for: Nausea, Vomiting, Abdominal Pain Musculoskeletal: Negative for: Neck Pain Psych: Positive for: Anxiety Physical Exam - Reviewed Nursing Documentation Reviewed: Yes Vital Signs Reviewed: Yes - Physical Exam Appears: Positive for: Uncomfortable Skin: Positive for: Normal Color Eye Exam: Positive for: Normal appearance Neck: Positive for: Normal, Supple Cardiovascular/Chest: Positive for: Regular Rate, Rhythm, Other (no pain on palpation of chest wall. ). Negative for: Murmur Respiratory: Positive for: Normal Breath Sounds Gastrointestinal/Abdominal: Positive for: Normal Exam Extremity: Positive for: Normal ROM (in B/L upper extremities with flexio n/extension/abduction.) Neurologic/Psych: Positive for: Alert, Oriented, Mood/Affect (tearful about friend's ) - Laboratory Results Result Diagrams: 08/10/18 16:30 08/10/18 16:30 - ECG O2 Sat by Pulse Oximetry: 100 Medical Decision Making Medical Decision Making: EKG CXR Troponin Urine preg Xanax 0.25mg CXR: unremarkable EKG: sinus, no acute ischemic changes. Trop negative Re-evaluated prior to d/c: C/P improved after Xanax. Pt advised that we cannot give prescription for Xanax (she does not want it anyway) but that she can feel reassured that the pain is likely related to anxiety. Appointment arranged at [facility] for 08/29 to discuss anxiety. Disposition - Clinical Impression Clinical Impression: Chest pain due to psychological stress - Patient ED Disposition Is Patient to be Admitted: No Counseled Patient/Family Regarding: Studies Performed, Diagnosis, Need For Followup - Disposition Referrals: [facility] [Outside] Naz Schwartz MD [Staff Provider] - Disposition: Routine/Home Disposition Time: 18:58 Condition: STABLE Additional Instructions: F/u in [facility] on 08/29/18 @ 9:20am. Return to ER if you have thoughts of committing suicide. Instructions: Chest Pain That Is Not Caused by the Heart (DC) Forms: [employer] (French) Print Language: PORTUGUESE
[2018-08-10 16:43] LABS: BASO % 0.6 % (0.0-2.0); EOS # 0.2 K/uL (0.0-0.7); EOS % 1.9 % (0.0-4.0); HEMOGLOBIN 13.8 g/dL (12.0-16.0); LYMPH # 2.9 K/uL (1.0-4.3); LYMPH % 33.5 % (20.0-40.0); MEAN CELL VOLUME 86.3 fl (81.0-99.0); MEAN CORPUSCULAR HEMOGLOBIN 28.3 pg (27.0-31.0); MEAN CORPUSCULAR HGB CONC 32.8 g/dL (33.0-37.0); MEAN PLATELET VOLUME 8.3 fl (7.2-11.7); MONO # 0.6 K/uL (0.0-0.8); MONO % 6.5 % (0.0-10.0); NEUT % 57.5 % (50.0-75.0); RBC 4.87 Mil/uL (3.80-5.20); RED CELL DISTRIBUTION WIDTH 14.1 % (11.5-14.5); WHITE BLOOD COUNT 8.8 K/uL (4.8-10.8)
[2018-08-10 17:31] LABS: ALB/GLOB RATIO 1.1 (1.0-2.1); ALBUMIN 4.3 g/dL (3.5-5.0); ALT/SGPT 24 U/L (9-52); AST/SGOT 29 U/L (14-36); BLOOD UREA NITROGEN 24 mg/dl (7-17); CALCIUM 9.4 mg/dL (8.4-10.2); GFR NON-AFRICAN AMERICAN 47
--- NOTE | 2018-08-10 17:58 | RAD ---
Date of service: 08/10/2018 HISTORY: shortness of breath, cough COMPARISON: No prior. TECHNIQUE: Chest PA and lateral FINDINGS: LUNGS: No active pulmonary disease. PLEURA: No significant pleural effusion identified. No pneumothorax apparent. CARDIOVASCULAR: No aortic atherosclerotic calcification present. Normal cardiac size. No pulmonary vascular congestion. OSSEOUS STRUCTURES: No significant abnormalities. VISUALIZED UPPER ABDOMEN: Normal. OTHER FINDINGS: None. IMPRESSION: No active disease.
[2018-08-10 18:19] VITALS: RESP 19
[2018-08-10 18:58] VITALS: BP 128/78; PULSE 78; TEMP 97.6
[2018-08-14 16:05] VITALS: O2SAT 100
== END 2018-08-10 18:59 | disposition home or self-care (01) ==
LOC: H.ER 14:14
DX: R07.9 Chest pain, unspecified (principal); I10 Essential (primary) hypertension; I25.2 Old myocardial infarction

== ENCOUNTER 2018-08-17 15:11 | Emergency (ER) | payer OTHER ==
[2018-08-17 15:11] VITALS: BMI 20.9
[2018-08-17 15:27] VITALS: TEMP 98.5
[2018-08-17] MEDS ORDERED: Sodium Chloride 0.9% 1,000 ML IV STA (15:50)
[2018-08-17] MEDS ORDERED: Iohexol 240 (50 ml) PO ONE (15:52)
[2018-08-17] MEDS ORDERED: Iohexol 240 (50 ml) ONE (15:59)
[2018-08-17 16:28] LABS: BASO # 0.1 K/uL (0.0-0.2); EOS # 0.2 K/uL (0.0-0.7); EOS % 2.2 % (0.0-4.0); HEMOGLOBIN 13.7 g/dL (12.0-16.0); LYMPH # 2.6 K/uL (1.0-4.3); LYMPH % 38.6 % (20.0-40.0); MEAN CELL VOLUME 86.2 fl (81.0-99.0); MEAN CORPUSCULAR HEMOGLOBIN 27.9 pg (27.0-31.0); MEAN CORPUSCULAR HGB CONC 32.4 g/dL (33.0-37.0); MONO # 0.6 K/uL (0.0-0.8); MONO % 8.3 % (0.0-10.0); NEUT # 3.4 K/uL (1.8-7.0); NEUT % 49.9 % (50.0-75.0); RBC 4.89 Mil/uL (3.80-5.20); RED CELL DISTRIBUTION WIDTH 14.2 % (11.5-14.5); WHITE BLOOD COUNT 6.8 K/uL (4.8-10.8)
--- NOTE | 2018-08-17 16:29 | ED PDOC ---
HPI: Abdomen Time Seen by Provider: 08/17/18 15:20 Chief Complaint (Nursing): GI Problem Chief Complaint (Provider): GI problem History Per: Patient History/Exam Limitations: no limitations Onset/Duration Of Symptoms: Days (x3) Current Symptoms Are (Timing): Still Present Location Of Pain/Discomfort: Epigastric Associated Symptoms: Back Pain, Chest Pain. denies: Fever, Nausea, Vomiting, Diarrhea, Constipation Additional Complaint(s): Jaleel Perdomo is a 33 year old female with a past medical history of hypertension who is presenting to the ED for evaluation of heart burn onset a few days ago and mild chest pain onset today. Patient states that she was here last week for similar symptoms and was told the chest pain was a result of anxiety. She states she was given Pepcid for the heartburn and had a renal ultrasound which was normal. Patient admits that while she was using the bathroom, she noted some spots of blood on tissue but doesnt know where it came from but knows it isnt her rectum or period as she wipes front to back. She is also complaining of epigastric abdominal pain associated with mild back pain but states that she is urinating normally with normal non-bloody stools. Patient denies any other medical complaints at this time. No dyspnea, weakness, headaches, dizziness. Of note, patient is on Norvasc. PMD: Terri Davidson Past Medical History Reviewed: Historical Data, Nursing Documentation, Vital Signs Vital Signs: Last Vital Signs Temp 98.5 F 08/17/18 15:22 Pulse 67 08/17/18 15:22 Resp 16 08/17/18 15:22 BP 129/96 H 08/17/18 15:22 Pulse Ox 100 08/17/18 15:22 - Medical History PMH: HTN Denies: Kidney Stones, Chronic Kidney Disease - Surgical History Surgical History: - Family History Family History: States: Unknown Family Hx - Social History Current smoker - smoking cessation education provided: Yes Alcohol: None Drugs: Cannabis - Home Medications Home Medications: Ambulatory Orders Medication Instructions Recorded amLODIPine [Norvasc] 5 mg PO DAILY #14 tab 08/28/16 Metronidazole 500 mg PO BID #14 tablet 04/20/18 metroNIDAZOLE [Flagyl] 500 mg PO BID #14 tab 04/20/18 Famotidine [Pepcid] 20 mg PO DAILY PRN #6 tab 08/17/18 - Allergies Allergies/Adverse Reactions: Allergies Allergy/AdvReac Type Severity Reaction Status Date / Time No Known Allergies Allergy Verified 08/16/18 07:34 Review of Systems ROS Statement: Except As Marked, All Systems Reviewed And Found Negative Cardiovascular: Positive for: Chest Pain Gastrointestinal: Positive for: Abdominal Pain. Negative for: Nausea, Vomiting, Diarrhea, Constipation Musculoskeletal: Positive for: Back Pain Physical Exam - Reviewed Nursing Documentation Reviewed: Yes Vital Signs Reviewed: Yes - Physical Exam Appears: Positive for: Non-toxic, No Acute Distress Head Exam: Positive for: ATRAUMATIC, NORMAL INSPECTION, NORMOCEPHALIC Skin: Positive for: Normal Color, Warm, DRY Eye Exam: Positive for: Normal appearance, EOMI, PERRL ENT: Positive for: Normal ENT Inspection Neck: Positive for: Normal, Painless ROM, Supple Cardiovascular/Chest: Positive for: Regular Rate, Rhythm. Negative for: Murmur Respiratory: Positive for: Normal Breath Sounds. Negative for: Respiratory Distress Gastrointestinal/Abdominal: Positive for: Soft, Tenderness (epigastric tenderness) Back: Positive for: Normal Inspection. Negative for: L CVA Tenderness, R CVA Tenderness Extremity: Positive for: Normal ROM. Negative for: Tenderness, Deformity Neurologic/Psych: Positive for: Alert, Oriented. Negative for: Motor/Sensory Deficits - Laboratory Results Result Diagrams: 08/17/18 16:25 08/17/18 16:25 Interpretation Of Abn Labs: similar to old - ECG ECG: Positive for: Interpreted By Me, Viewed By Me ECG Rhythm: Positive for: Normal QRS, Normal ST Segment, Sinus Rhythm O2 Sat by Pulse Oximetry: 100 (RA) Pulse Ox Interpretation: Normal - Radiology X-Ray: Read By Radiologist X-Ray Interpretation: No Acute Disease - CT Scan/US ct Other Rad Studies (CT/US): Read By Radiologist Other Rad Interpretation: ?gallstone - Progress ED Course And Treament: 1947: Stable. AAOx3. Pain free. Tolerated PO. Several visits for the same. States she googles stuff and gets scared and comes to the Er. No symptoms currently. Fu with pcp. Labs similar to old and states US was neg of renals. Medical Decision Making Medical Decision Making: Time: 15:54 Plan: --CT Abd/Pelvis --EKG --CMP --Lipase --ED Urine --ED Urine Dipstick --CBC --Chest X-Ray --Pepcid 20 mg IVP --IV Fluids --Omnipaque 50 ml PO Scribe Attestation: Documented by, Melissa Soler acting as a scribe for Andry Sharma MD. Provider Scribe Attestation: All medical record entries made by the Scribe were at my direction and personally dictated by me. I have reviewed the chart and agree that the record accurately reflects my personal performance of the history, physical exam, me dical decision making, and the department course for this patient. I have also personally directed, reviewed, and agree with the discharge instructions and disposition. Disposition - Clinical Impression Clinical Impression: Gallstone, Chest pain - Patient ED Disposition Is Patient to be Admitted: No Counseled Patient/Family Regarding: Studies Performed, Diagnosis, Need For Followup, Rx Given - Disposition Referrals: [facility] [Outside] - 08/19/18 Disposition: Routine/Home Disposition Time: 19:50 Condition: STABLE Additional Instructions: Return if not better in 3 days. Prescriptions: Famotidine [Pepcid] 20 mg PO DAILY PRN #6 tab PRN Reason: Pain Instructions: Gallstones, Chest Pain
--- NOTE | 2018-08-17 16:36 | RAD ---
Date of service: 08/17/2018 HISTORY: dyspnea COMPARISON: Chest radiographs 08/10/2018 FINDINGS: LUNGS: No active pulmonary disease. PLEURA: No significant pleural effusion identified, no pneumothorax apparent. CARDIOVASCULAR: No aortic atherosclerotic calcification present. Normal cardiac size. No pulmonary vascular congestion. OSSEOUS STRUCTURES: No significant abnormalities. VISUALIZED UPPER ABDOMEN: Normal. OTHER FINDINGS: None. IMPRESSION: No interval acute cardiopulmonary disease appreciated.
[2018-08-17 16:41] LABS: ALB/GLOB RATIO 1.1 (1.0-2.1); ALBUMIN 4.1 g/dL (3.5-5.0); CALCIUM 9.2 mg/dL (8.4-10.2)
[2018-08-17] MEDS ORDERED: Iodixanol 320 MG/ML 100 ML BOTTLE IV ONE (18:24)
[2018-08-17] MEDS ORDERED: Sodium Chloride 0.9% 50 ML IV ONE (18:24)
[2018-08-17 20:26] VITALS: BP 126/89; PULSE 65; RESP 18; O2SAT 99
--- NOTE | 2018-08-18 15:19 | CT ---
Date of service: 08/17/2018 PROCEDURE: CT Abdomen and Pelvis with contrast HISTORY: abd pain COMPARISON: None. TECHNIQUE: Following oral and intravenous contrast administration, a CT examination of the abdomen and pelvis performed from the domes of the diaphragms to the symphysis pubis with reformatted datasets provided not only axial but also sagittal and coronal series. Coronal and sagittal reformats were generated. Contrast dose: Omnipaque 320, 95 cc Radiation dose: Total exam DLP = 299.53 mGy-cm. This CT exam was performed using one or more of the following dose reduction techniques: Automated exposure control, adjustment of the mA and/or kV according to patient size, and/or use of iterative reconstruction technique. FINDINGS: LOWER THORAX: Unremarkable. LIVER: Unremarkable. No gross lesion or ductal dilatation. GALLBLADDER AND BILE DUCTS: Unremarkable. PANCREAS: Unremarkable. No gross lesion or ductal dilatation. SPLEEN: Unremarkable. ADRENALS: Unremarkable. No mass. KIDNEYS AND URETERS: Unremarkable right kidney. No hydronephrosis bilaterally. Lucency at the upper midpole left kidney measures 2.0 x 2.8 cm in 24 Hounsfield units probably reflecting a mildly complex cyst a cyst with a solitary septation is seen in prior renal ultrasound 08/15/2018. No solid mass identified. There is an additional tiny lucency identified at the mid as well as at the lower pole left kidney, both of which are too small to characterize. VASCULATURE: Unremarkable. No aortic aneurysm. No aortic atherosclerotic calcification or mural plaque present. BOWEL: Unremarkable. No obstruction. No gross mural thickening. APPENDIX: Not clearly identified. No CT evidence of appendicitis. PERITONEUM: Unremarkable. No free fluid. No free air. LYMPH NODES: Unremarkable. No enlarged lymph nodes. BLADDER: Markedly distended urinary bladder. No suspicious mural thickening. No radiodense urolithiasis. REPRODUCTIVE: Unremarkable. BONES: No acute fracture. OTHER FINDINGS: None. IMPRESSION: Minimally complex left renal cyst. Distended urinary bladder. No definite acute abdominal or pelvic findings. Concordant preliminary report from [facility], 08/17/2018 7:33 p.m..
--- NOTE | 2018-08-18 19:01 | CARD ---
APPROVED REPORT Date of service: 08/17/2018 EKG Measurement Heart [id number] [place] [id number] <Conclusion> Sinus bradycardia Otherwise normal ECG
== END 2018-08-17 20:15 | disposition home or self-care (01) ==
LOC: H.ER 15:11
DX: K80.20 Calculus of gallbladder without cholecystitis without obstruction (principal); R07.9 Chest pain, unspecified; F17.200 Nicotine dependence, unspecified, uncomplicated; I10 Essential (primary) hypertension
CPT/HCPCS: 71045; 74177; 80053; 81025; 83690; 85025; 93005; 96374; 99284; J7030; Q9966; Q9967

== ENCOUNTER 2018-08-22 08:55 | Emergency (ER) | payer OTHER ==
[2018-08-22 08:56] VITALS: BMI 20.9
[2018-08-22] MEDS ORDERED: Sodium Chloride 0.9% 1,000 ML IV STA (09:47)
--- NOTE | 2018-08-22 09:49 | ED PDOC ---
HPI: Abdomen Additional Complaint(s): 33 yo female PMHx HTN presents to ER with complaints of worsening epigastric pain of 2 weeks duration. Patient reports epigastric, non-radiating, burning pain, 8/10 this morning associated with intermittent nausea. Patient reports she googled about causes of abdominal pain last night and it made her anxious. Patient was seen in the ER on 08/17/18 for similar symptoms, CT A/P was unremarkable except for minimally complex left renal cyst. Patient was discharged with pepcid. Patient reports some relief with Pepcid. States she quit smoking cigarettes and Marijuana use for last 2 weeks. Denies any EtOH use >1 yr. Patient went to see Dr. Lacy last week and given referral to GI and has appointment in 09/2018. Denies any chest pain, dyspnea, vomiting, diarrhea, constipation, bloody stool, vaginal discharge, fever or chills. PMD: Terri Davidson <Sultan Darrin - Last Filed: 08/22/18 12:00> <Andry Sharma - Last Filed: 08/22/18 12:13> Time Seen by Provider: 08/22/18 09:18 Chief Complaint (Nursing): Abdominal Pain Supervising Attending Note - Supervising Attending Note The Documented history was done by the: Physician Weed Cooking Operator The documented physical exam was done by the: Physician Weed Cooking Operator The documented procedures were done by the: Physician Weed Cooking Operator - Attestation: I have personally seen and examined this patient.: Yes I have fully participated in the care of the patient.: Yes I have reviewed all pertinent clinical information: Yes - Notes: Notes:: Abd pain epigastric. Relieved with famotidine. <Andry Sharma - Last Filed: 08/22/18 12:13> Past Medical History Vital Signs: Last Vital Signs Temp 98 F 08/22/18 09:09 Pulse 92 H 08/22/18 09:09 Resp BP 132/86 08/22/18 09:09 Pulse Ox 100 08/22/18 09:09 - Medical History PMH: HTN Denies: Kidney Stones, Chronic Kidney Disease - Surgical History Surgical History: - Family History Family History: States: Unknown Family Hx <Sultan Darrin - Last Filed: 08/22/18 12:00> Vital Signs: Last Vital Signs Temp 98 F 08/22/18 09:09 Pulse 92 H 08/22/18 09:09 Resp BP 132/86 08/22/18 09:09 Pulse Ox 100 08/22/18 12:01 <Andry Sharma - Last Filed: 08/22/18 12:13> - Home Medications Home Medications: Ambulatory Orders Medication Instructions Recorded amLODIPine [Norvasc] 5 mg PO DAILY #14 tab 08/28/16 Metronidazole 500 mg PO BID #14 tablet 04/20/18 metroNIDAZOLE [Flagyl] 500 mg PO BID #14 tab 04/20/18 Famotidine [Pepcid] 20 mg PO DAILY PRN #6 tab 08/17/18 Pantoprazole Sodium [Protonix] 40 mg PO DAILY 14 Days ect 08/22/18 - Allergies Allergies/Adverse Reactions: Allergies Allergy/AdvReac Type Severity Reaction Status Date / Time No Known Allergies Allergy Verified 08/16/18 07:34 Review of Systems ROS Statement: Except As Marked, All Systems Reviewed And Found Negative <Sultan Darrin - Last Filed: 08/22/18 12:00> Physical Exam - Physical Exam Appears: Positive for: Non-toxic, No Acute Distress Head Exam: Positive for: ATRAUMATIC, NORMOCEPHALIC Skin: Positive for: Normal Color Eye Exam: Positive for: Normal appearance, EOMI, PERRL Neck: Positive for: Normal Cardiovascular/Chest: Positive for: Regular Rate, Rhythm Respiratory: Positive for: Normal Breath Sounds. Negative for: Crackles, Rales, Rhonchi, Wheezing, Respiratory Distress Gastrointestinal/Abdominal: Positive for: Bowel Sounds, Soft, Tenderness (Mild epigastric tenderness). Negative for: Organomegaly, Distended, Guarding, Rebound Back: Positive for: Normal Inspection. Negative for: L CVA Tenderness, R CVA Tenderness Extremity: Positive for: Normal ROM. Negative for: Pedal Edema, Calf Tenderness Neurologic/Psych: Positive for: Alert, Oriented <Sultan Darrin - Last Filed: 08/22/18 12:00> - Physical Exam Eye Exam: Positive for: Normal appearance, EOMI, PERRL ENT: Positive for: Normal ENT Inspection Cardiovascular/Chest: Positive for: Regular Rate, Rhythm Respiratory: Positive for: Normal Breath Sounds <Andry Sharma - Last Filed: 08/22/18 12:13> - Laboratory Results Result Diagrams: 08/22/18 10:30 08/22/18 10:30 - ECG O2 Sat by Pulse Oximetry: 100 - Progress ED Course And Treament: Time: 9:45 am 33 yo female presents with epigastric pain and nausea likely secondary to gastritis. Plan: EKG CBC BMP LIPASE Urine b-HCG IVF's NS 1 bolus Protonix 40 mg IVP Re-evaluate 11: 45 am Labs reviewed cbc,bmp and lipase all WNL Patient reports she is feeling better after pantoprazole and IVF Patient reports she called her PMD and they made an appointment to see GI on 08/28/18 Patient is medically stable to discharge home with pantoprazole 40 mg po daily. Advised to f/u with GI as scheduled. Plan d/w Dr. Sharma <Sultan Darrin - Last Filed: 08/22/18 12:00> - Laboratory Results Result Diagrams: 08/22/18 10:30 08/22/18 10:30 - ECG Pulse Ox Interpretation: Normal - Progress ED Course And Treament: 1213: Stable. AAOx3. Pain free. Tolerated po. <Andry Sharma - Last Filed: 08/22/18 12:13> Disposition - Disposition Disposition Time: 12:01 <Sultan Darrin - Last Filed: 08/22/18 12:00> <Andry Sharma - Last Filed: 08/22/18 12:13> - Clinical Impression Clinical Impression: Abdominal discomfort - Disposition Referrals: [facility]Outside] - 08/23/18 Condition: STABLE Additional Instructions: Return if not better in 3 days. Prescriptions: Pantoprazole Sodium [Protonix] 40 mg PO DAILY 14 Days ect Instructions: Stomach Ache and Stomach Upset Forms: [facility] (Armenian), [facility] ED School/Work Excuse
[2018-08-22 10:42] LABS: BASO # 0.1 K/uL (0.0-0.2); EOS # 0.1 K/uL (0.0-0.7); EOS % 1.9 % (0.0-4.0); HEMOGLOBIN 14.1 g/dL (12.0-16.0); LYMPH # 1.5 K/uL (1.0-4.3); MEAN CELL VOLUME 87.7 fl (81.0-99.0); MEAN CORPUSCULAR HEMOGLOBIN 28.2 pg (27.0-31.0); MEAN CORPUSCULAR HGB CONC 32.1 g/dL (33.0-37.0); MEAN PLATELET VOLUME 8.4 fl (7.2-11.7); MONO # 0.4 K/uL (0.0-0.8); MONO % 6.5 % (0.0-10.0); NEUT # 3.5 K/uL (1.8-7.0); NEUT % 63.6 % (50.0-75.0); NRBC % 0.2 % (0.0-0.0); RBC 5.01 Mil/uL (3.80-5.20); RED CELL DISTRIBUTION WIDTH 13.9 % (11.5-14.5); WHITE BLOOD COUNT 5.5 K/uL (4.8-10.8)
[2018-08-22 10:53] LABS: BLOOD UREA NITROGEN 26 mg/dl (7-17); CALCIUM 9.7 mg/dL (8.4-10.2); GFR NON-AFRICAN AMERICAN 51; LIPASE 113 U/L (23-300)
[2018-08-22 12:19] VITALS: BP 134/86; PULSE 64; RESP 16; TEMP 98.9; O2SAT 98
--- NOTE | 2018-08-22 22:32 | CARD ---
APPROVED REPORT Date of service: 08/22/2018 EKG Measurement Heart [id number] <Conclusion> Normal sinus rhythm with sinus arrhythmia Possible Left atrial enlargement Borderline ECG
== END 2018-08-22 12:18 | disposition home or self-care (01) ==
LOC: H.ER 08:55
DX: R10.13 Epigastric pain (principal); R11.0 Nausea; I10 Essential (primary) hypertension
CPT/HCPCS: 80048; 81025; 83690; 85025; 93005; 96361; 96374; 99284; C9113; J7030

== ENCOUNTER 2018-08-29 21:09 | Emergency (ER) | payer OTHER ==
[2018-08-29 21:10] VITALS: BMI 20.9
[2018-08-29 21:38] VITALS: BP 132/89; PULSE 89; RESP 16; TEMP 98.5; O2SAT 98
== END 2018-08-29 21:49 | disposition left against medical advice (07) ==
LOC: H.ER 21:09
DX: Z02.89 Encounter for other administrative examinations (principal)

== ENCOUNTER 2018-08-30 14:16 | Emergency (ER) | payer OTHER ==
[2018-08-30 14:17] VITALS: BMI 20.9
[2018-08-30 14:32] VITALS: RESP 18; O2SAT 100
--- NOTE | 2018-08-30 15:39 | ED PDOC ---
HPI: Back Time Seen by Provider: 08/30/18 14:39 Chief Complaint (Nursing): Back Pain Chief Complaint (Provider): thoracic back pain History Per: Patient History/Exam Limitations: no limitations Onset/Duration Of Symptoms: Days (2), Gradual Current Symptoms Are (Timing): Still Present Quality Of Discomfort: Sharp Previous Symptoms: None Additional Complaint(s): 33yo female c/o mid and upper back pain x2 days, denies nausea, vomiting, cough, fever, syncope, urinary symptoms or prior history of same. Took tylenol early this morning. Denies lifting, trauma or injury. Denies weakness or numbness. Prior records reviewed, multiple ED visits with abdominal and chest pain complaints. Past Medical History Reviewed: Historical Data, Nursing Documentation, Vital Signs Vital Signs: Last Vital Signs Temp 98.8 F 08/30/18 14:29 Pulse 96 H 08/30/18 14:29 Resp 18 08/30/18 14:29 BP 120/87 08/30/18 14:29 Pulse Ox 100 08/30/18 14:29 - Medical History PMH: HTN Denies: Kidney Stones, Chronic Kidney Disease Other PMH: takes norvasc - Surgical History Surgical History: - Family History Family History: States: Unknown Family Hx - Social History Drugs: Denies - Home Medications Home Medications: Ambulatory Orders Medication Instructions Recorded amLODIPine [Norvasc] 5 mg PO DAILY #14 tab 08/28/16 Metronidazole 500 mg PO BID #14 tablet 04/20/18 metroNIDAZOLE [Flagyl] 500 mg PO BID #14 tab 04/20/18 Famotidine [Pepcid] 20 mg PO DAILY PRN #6 tab 08/17/18 Pantoprazole Sodium [Protonix] 40 mg PO DAILY 14 Days ect 08/22/18 Ibuprofen [Motrin Tab] 400 mg PO Q6 PRN #10 tab 08/30/18 - Allergies Allergies/Adverse Reactions: Allergies Allergy/AdvReac Type Severity Reaction Status Date / Time No Known Allergies Allergy Verified 08/30/18 14:28 Review of Systems ROS Statement: Except As Marked, All Systems Reviewed And Found Negative Constitutional: Negative for: Fever ENT: Negative for: Ear Pain Cardiovascular: Negative for: Chest Pain Respiratory: Negative for: Cough Gastrointestinal: Negative for: Nausea, Vomiting, Abdominal Pain Genitourinary Female: Negative for: Dysuria Musculoskeletal: Positive for: Back Pain. Negative for: Neck Pain, Shoulder Pain, Arm Pain, Hand Pain, Leg Pain Skin: Negative for: Rash, Lesions Neurological: Negative for: Weakness, Numbness Psych: Negative for: Depression Physical Exam - Reviewed Nursing Documentation Reviewed: Yes Vital Signs Reviewed: Yes - Physical Exam Appears: Positive for: Well, Non-toxic, No Acute Distress Head Exam: Positive for: ATRAUMATIC, NORMAL INSPECTION, NORMOCEPHALIC Skin: Positive for: Normal Color, Warm, DRY Eye Exam: Positive for: EOMI, Normal appearance, PERRL ENT: Positive for: Normal ENT Inspection Neck: Positive for: Normal, Painless ROM Cardiovascular/Chest: Positive for: Regular Rate, Rhythm Respiratory: Positive for: CNT, Normal Breath Sounds Pulses-Radial (L): 3+/4+ Pulses-Radial (R): 3+/4+ Gastrointestinal/Abdominal: Positive for: Soft. Negative for: Tenderness, Guar ding Back: Positive for: Normal Inspection. Negative for: Vertebral Tenderness, Decreased ROM, Muscle Spasm Extremity: Positive for: Normal ROM Neurologic/Psych: Positive for: Alert, Oriented. Negative for: Motor/Sensory De ficits - Laboratory Results Result Diagrams: 08/30/18 15:20 08/30/18 15:20 - ECG O2 Sat by Pulse Oximetry: 100 Pulse Ox Interpretation: Normal Medical Decision Making Medical Decision Making: prior chart reviewed repeat bloodwork, US GB and initiate analgesia CXR 08/17 negative labs today reviewed reveal mild hypokalemia and AST 44, normal WBC, Upreg neg, Udip neg leuk esterase US report reveals gallstones Accession No. : [id number] Patient Name / ID : HEATHER RAMOS / [id number] Exam Date : 08/30/2018 15:55:13 ( Approved ) Study Comment : Sex / Age : F / 33Y Creator : Matthieu Bunn MD Dictator : Matthieu Bunn MD Graduate Teaching Assistant : Liquor Store Manager : Matthieu Bunn MD Approver2 : Report Date : 08/30/2018 16:52:26 My Comment : Date of service: 08/30/2018 HISTORY: RUQ/back pain COMPARISON: Comparison made with prior CT scan abdomen and pelvis 08/17/2018. TECHNIQUE: Sonographic evaluation of the right upper quadrant of the abdomen. FINDINGS: LIVER: Measures 11.1 cm in length. Smooth contour and normalechogenicity of the liver parenchyma.. Note that the liver exhibited mild fatty infiltration on prior CT scan. No mass. No intrahepatic bile duct dilatation. GALLBLADDER: Intraluminal gallbladder calculus seen measuring approximately 1.65 x 1.6 x 1.6 cm.. Gallbladder wall appears slightly thickened as well measuring 3.5 mm.. No evidence of pericholecystic fluid collections or sonographic Whiteside sign. COMMON BILE DUCT: Measures 5.4 mm. No stones. No dilatation. PANCREAS: Unremarkable as visualized. No mass. No ductal dilatation. RIGHT KIDNEY: Measures 11.0 x 4.6 x 3.7 cm in length. . the right kidney is slightly echogenic in appearance. No shadowing calculi or hydronephrosis.. There are at least 2 cysts present pole, the 1st measuring 8 mm in greatest dimension and the 2nd measuring approximately 9 mm in greatest dimension. AORTA: No aneurysmal dilatation. IVC: Unremarkable. OTHER FINDINGS: None . IMPRESSION: Cholelithiasis with slight gallbladder wall thickening. No evidence of sonographic Whiteside sign. Common bile duct measures 5.4 mm. Echogenic kidney with at least 2 upper pole cysts as detailed above -------- pain free on re-eval, discussed recommendations at length, states she has GI appt Sep 04 at [facility], also referred to surgery. Indications for return discussed at length and questions answered on diet modification, potential for complications if followup avoided or delayed, and pain medication instructions. Disposition - Clinical Impression Clinical Impression: Gallstones, Back pain Counseled Patient/Family Regarding: Studies Performed, Diagnosis, Need For Followup, Rx Given - Disposition Referrals: Michelle Nguyen MD [Staff Provider] - Disposition: Routine/Home Disposition Time: 16:55 Condition: STABLE Additional Instructions: Use tylenol or motrin for pain, followup with clinic or your primary doctor or see surgeon for evaluation to have your gallbladder removed. Prescriptions: Ibuprofen [Motrin Tab] 400 mg PO Q6 PRN #10 tab PRN Reason: Pain, Moderate (4-7) Instructions: Gallstones (DC) Forms: [facility] (Urdu)
[2018-08-30 15:50] LABS: BASO # 0.1 K/uL (0.0-0.2); EOS # 0.3 K/uL (0.0-0.7); EOS % 5.2 % (0.0-4.0); HEMOGLOBIN 13.4 g/dL (12.0-16.0); LYMPH # 2.4 K/uL (1.0-4.3); LYMPH % 39.9 % (20.0-40.0); MEAN CELL VOLUME 86.9 fl (81.0-99.0); MEAN CORPUSCULAR HEMOGLOBIN 27.7 pg (27.0-31.0); MEAN CORPUSCULAR HGB CONC 31.9 g/dL (33.0-37.0); MEAN PLATELET VOLUME 8.9 fl (7.2-11.7); MONO # 0.4 K/uL (0.0-0.8); NEUT # 2.8 K/uL (1.8-7.0); NEUT % 47.9 % (50.0-75.0); NRBC % 0.1 % (0.0-0.0); RBC 4.85 Mil/uL (3.80-5.20); RED CELL DISTRIBUTION WIDTH 14.1 % (11.5-14.5); WHITE BLOOD COUNT 5.9 K/uL (4.8-10.8)
[2018-08-30 16:02] LABS: ALB/GLOB RATIO 1.2 (1.0-2.1); ALBUMIN 4.4 g/dL (3.5-5.0); ALT/SGPT 24 U/L (9-52); AST/SGOT 47 U/L (14-36); BLOOD UREA NITROGEN 21 mg/dl (7-17); CALCIUM 9.2 mg/dL (8.4-10.2); GFR NON-AFRICAN AMERICAN 57
[2018-08-30] MEDS ORDERED: Potassium Chloride 20 mEq ER Tab PO ONE ×2 (16:15→17:33)
--- NOTE | 2018-08-30 16:56 | US ---
Date of service: 08/30/2018 HISTORY: RUQ/back pain COMPARISON: Comparison made with prior CT scan abdomen and pelvis 08/17/2018. TECHNIQUE: Sonographic evaluation of the right upper quadrant of the abdomen. FINDINGS: LIVER: Measures 11.1 cm in length. Smooth contour and normalechogenicity of the liver parenchyma.. Note that the liver exhibited mild fatty infiltration on prior CT scan. No mass. No intrahepatic bile duct dilatation. GALLBLADDER: Intraluminal gallbladder calculus seen measuring approximately 1.65 x 1.6 x 1.6 cm.. Gallbladder wall appears slightly thickened as well measuring 3.5 mm.. No evidence of pericholecystic fluid collections or sonographic Whiteside sign. COMMON BILE DUCT: Measures 5.4 mm. No stones. No dilatation. PANCREAS: Unremarkable as visualized. No mass. No ductal dilatation. RIGHT KIDNEY: Measures 11.0 x 4.6 x 3.7 cm in length. . the right kidney is slightly echogenic in appearance. No shadowing calculi or hydronephrosis.. There are at least 2 cysts present pole, the 1st measuring 8 mm in greatest dimension and the 2nd measuring approximately 9 mm in greatest dimension. AORTA: No aneurysmal dilatation. IVC: Unremarkable. OTHER FINDINGS: None . IMPRESSION: Cholelithiasis with slight gallbladder wall thickening. No evidence of sonographic Whiteside sign. Common bile duct measures 5.4 mm. Echogenic kidney with at least 2 upper pole cysts as detailed above
[2018-08-30 17:43] VITALS: BP 126/93; PULSE 60; TEMP 99
--- NOTE | 2018-09-10 13:19 | CARD ---
APPROVED REPORT Date of service: 08/30/2018 EKG Measurement Heart [id number] <Conclusion> Normal sinus rhythm Normal Electrocardiogram
== END 2018-08-30 17:47 | disposition home or self-care (01) ==
LOC: H.ER 14:16
DX: K80.20 Calculus of gallbladder without cholecystitis without obstruction (principal); I10 Essential (primary) hypertension; N28.1 Cyst of kidney, acquired

== ENCOUNTER 2018-09-29 10:13 | Emergency (ER) | payer OTHER ==
[2018-09-29 10:13] VITALS: BMI 20.9
[2018-09-29 10:19] VITALS: BP 121/84; PULSE 97; RESP 17; TEMP 98.5; O2SAT 100
--- NOTE | 2018-09-29 10:49 | ED PDOC ---
HPI: Headache Time Seen by Provider: 09/29/18 10:26 Chief Complaint (Nursing): Headache Chief Complaint (Provider): Headache History Per: Patient History/Exam Limitations: no limitations Onset/Duration Of Symptoms: Days (x4) Current Symptoms Are (Timing): Still Present Severity: Moderate Pain Scale Rating Of: 7 Quality: Other (throbbing) Preceeding Symptoms: None Associated Symptoms: denies: Photophobia, Blurred Vision, Nausea, Vomiting, Extremity Weakness Additional Complaint(s): Patient is a 33 year old female who presents for evaluation of an occipital headache for the last four days. Patient reports the headache was sudden in onset, waxes and wanes throughout the day, and is unrelieved by Ibuprofen 600mg, last taken yesterday at 6pm. Patient denies any history of headaches. Patient describes the pain as "throbbing" and rates it a 7/10 at present. Patient denies fever, neck pain/stiffness, dizziness, ear/throat pain, N/V, photophobia, phonophobia, numbness/weakness, visual changes. No other complaints. PMD: Lacy LMP: unknown, on Depo - last injection was 5 weeks ago Past Medical History Reviewed: Historical Data, Nursing Documentation, Vital Signs Vital Signs: Last Vital Signs Temp 98.5 F 09/29/18 10:18 Pulse 97 H 09/29/18 10:18 Resp 17 09/29/18 10:18 BP 121/84 09/29/18 10:18 Pulse Ox 100 09/29/18 10:18 - Medical History PMH: HTN Other PMH: cysts on kidney - Surgical History Surgical History: Cholecystectomy, - Family History Family History: States: Unknown Family Hx - Living Arrangements Living Arrangements: With Family - Home Medications Home Medications: Ambulatory Orders Medication Instructions Recorded amLODIPine [Norvasc] 5 mg PO DAILY #14 tab 08/28/16 Metronidazole 500 mg PO BID #14 tablet 04/20/18 metroNIDAZOLE [Flagyl] 500 mg PO BID #14 tab 04/20/18 Famotidine [Pepcid] 20 mg PO DAILY PRN #6 tab 08/17/18 Pantoprazole Sodium [Protonix] 40 mg PO DAILY 14 Days ect 08/22/18 Ibuprofen [Motrin Tab] 400 mg PO Q6 PRN #10 tab 12/28/18 Acetaminophen [Acetaminophen 8 650 mg PO Q8 PRN #21 tablet.er 09/29/18 Hour] Naproxen 500 mg PO BID PRN #20 tab 09/29/18 - Allergies Allergies/Adverse Reactions: Allergies Allergy/AdvReac Type Severity Reaction Status Date / Time No Known Allergies Allergy Verified 08/30/18 14:28 Review of Systems ROS Statement: Except As Marked, All Systems Reviewed And Found Negative Constitutional: Negative for: Fever Eyes: Negative for: Vision Change ENT: Negative for: Ear Pain, Throat Pain Gastrointestinal: Negative for: Nausea, Vomiting Musculoskeletal: Negative for: Neck Pain Neurological: Positive for: Headache. Negative for: Weakness, Numbness Physical Exam - Reviewed Nursing Documentation Reviewed: Yes Vital Signs Reviewed: Yes - Physical Exam Comments: GENERALIZED APPEARANCE: Patient is awake, alert, oriented x3 in no acute distress.Resting comfortably. SKIN: Warm, dry; (-) cyanosis; (-) rash. HEAD: (-) scalp swelling or tenderness, (-) temporal artery tenderness. EYES: (-) conjunctival pallor, (-) scleral icterus. ENMT: (-) sinus tenderness; mucous membranes moist. Airway patent, (-) stridor. Pharynx: clear, uvula midline (-) exudate (-) erythema. NECK:Supple, FROM (-) tenderness, (-) stiffness, (-) meningismus, (-) lymphadenopathy. CHEST AND RESPIRATORY: (-) rales, (-) rhonchi, (-) wheezes; breath sounds equal bilaterally. Respirations even and nonlabored. HEART AND CARDIOVASCULAR: (-) irregularity ABDOMEN AND GI: Soft; (-) tenderness (-) guarding (-) distention. EXTREMITIES: (-) deformity. NEURO AND PSYCH: Mental status as above. sow farm manager: Pupils equal and reactive; EOMI and painless; (-) facial asymmetry; tongue midline. Strength and smile symmetric.Gait: steady. Speech: clear. Cerebellar tests intact. - Laboratory Results Urine POC: Negative - ECG O2 Sat by Pulse Oximetry: 100 (RA) Pulse Ox Interpretation: Normal Medical Decision Making Medical Decision Makin Initial Impression: headache Plan: -Urine test -Head CT without contrast -Patient declined any medication in ED -Re-evaluation 1240 CT reviewed, radiology report follows Date of service: 09/29/2018 PROCEDURE: CT HEAD WITHOUT CONTRAST. HISTORY: Headache x 4 days COMPARISON: Comparison made with CT scan brain 08/11/2014. TECHNIQUE: Axial computed tomography images were obtained through the head/brain without intravenous contrast. Radiation dose: Total exam DLP = 1157.77 mGy-cm. This CT exam was performed using one or more of the following dose reduction techniques: Automated exposure control, adjustment of the mA and/or kV according to patient size, and/or use of iterative reconstruction technique. FINDINGS: HEMORRHAGE: No intracranial hemorrhage. BRAIN: No mass effect or edema. No atrophy or chronic microvascular ischemic changes. VENTRICLES: Unremarkable. No hydrocephalus. CALVARIUM: Unremarkable. PARANASAL SINUSES: Unremarkable as visualized. No significant inflammatory changes. MASTOID AIR CELLS: Unremarkable as visualized. No inflammatory changes. OTHER FINDINGS: None. IMPRESSION: No acute intracranial hemorrhage. On re-evaluation, patient reports improvement of symptoms. On exam, patient remains AAOx3, in no acute distress. Lungs clear to auscultation, cardiac RRR, repeat neuro exam shows no focal findings. VSS, stable for discharge. Lab/Diagnostic results d/w the patient in great detail. Diagnosis of headache d/w the patient. Based on history, exam and diagnostic results, plan will be for outpatient follow up with PMD/neuro. Patient instructed to follow-up with pmd / referral provided / the clinic in 1- 2 days without fail. Advised to take medication as prescribed. Return to the emergency room at any time for any new or worsening symptoms. Patient states she fully agrees with and understands discharge instructions. States that she agrees with the plan and disposition. Verbalized and repeated discharge instructions and plan. I have given the patient opportunity to ask any additional questions. Disposition - Clinical Impression Clinical Impression: Headache - Patient ED Disposition Is Patient to be Admitted: No Counseled Patient/Family Regarding: Studies Performed, Diagnosis, Need For Followup, Rx Given - Disposition Referrals: Josemanuel Lacy MD [Family Provider] - Sarwat Damon MD [Medical Doctor] - Disposition: Routine/Home Disposition Time: 12:45 Condition: STABLE Additional Instructions: The emergency medical care you received today was directed towards the acute presenting symptoms. If you were prescribed any medication, please fill it and give as directed. It may take several days for your symptoms to resolve. Return to the Emergency Department at any time if symptoms worsen, do not improve, or i f any other problems arise. Please contact your doctor in 2 days for re-evaluation and follow up / or call one of the physicians/clinics you have been referred to that are listed on the Patient Visit Information form that is included in your discharge packet. Bring any paperwork you were given at discharge with you along with any medications to your follow up visit. Our treatment cannot replace ongoing medical care by a primary care provider (PCP) outside of the emergency department. Prescriptions: Acetaminophen [Acetaminophen 8 Hour] 650 mg PO Q8 PRN #21 tablet.er PRN Reason: Headache Naproxen 500 mg PO BID PRN #20 tab PRN Reason: Headache Instructions: Tension Headache, Headache, Adult Forms: [facility] (Ukrainian) Print Language: GREENLANDIC - POA Present On Arrival: None
--- NOTE | 2018-09-29 12:28 | CT ---
Date of service: 09/29/2018 PROCEDURE: CT HEAD WITHOUT CONTRAST. HISTORY: Headache x 4 days COMPARISON: Comparison made with CT scan brain 08/11/2014. TECHNIQUE: Axial computed tomography images were obtained through the head/brain without intravenous contrast. Radiation dose: Total exam DLP = 1157.77 mGy-cm. This CT exam was performed using one or more of the following dose reduction techniques: Automated exposure control, adjustment of the mA and/or kV according to patient size, and/or use of iterative reconstruction technique. FINDINGS: HEMORRHAGE: No intracranial hemorrhage. BRAIN: No mass effect or edema. No atrophy or chronic microvascular ischemic changes. VENTRICLES: Unremarkable. No hydrocephalus. CALVARIUM: Unremarkable. PARANASAL SINUSES: Unremarkable as visualized. No significant inflammatory changes. MASTOID AIR CELLS: Unremarkable as visualized. No inflammatory changes. OTHER FINDINGS: None. IMPRESSION: No acute intracranial hemorrhage.
== END 2018-09-29 13:20 | disposition home or self-care (01) ==
LOC: H.ER 10:13
DX: R51 Headache (principal)

== ENCOUNTER 2018-10-28 08:33 | Emergency (ER) | payer MEDICAID, OTHER ==
[2018-10-28 08:39] VITALS: TEMP 98.4
--- NOTE | 2018-10-28 09:04 | CARD ---
APPROVED REPORT Date of service: 10/28/2018 EKG Measurement Heart [id number] [place] [id number] <Conclusion> Normal sinus rhythm Normal Electrocardiogram
--- NOTE | 2018-10-28 09:29 | ED PDOC ---
HPI: General Adult Time Seen by Provider: 10/28/18 08:59 Chief Complaint (Nursing): Anxiety Chief Complaint (Provider): Anxiety History Per: Patient History/Exam Limitations: no limitations Onset/Duration Of Symptoms: Hrs (today) Current Symptoms Are (Timing): Gone Now Additional Complaint(s): Jaleel Perdomo is a 33 year old female, with a past medical history of anxiety, who presents to the emergency department for evaluation of chest pain and headache. Patient reports her anxiety was triggered due to family stress at home stating she feels responsible for them. Patient further states she was unable to sleep overnight, the anxiety kept worsening and began to develop a chest pain. She went to [facility] clinic this morning to set up an appointment but the doctor was out of town which prompted her to visit the ED for further evaluation. Patient reports being currently asymptomatic now but still has a mild headache. She denies any shortness of breath, discomfort, nausea, vomit, weakness, numbness or other medical complaints. Past Medical History Reviewed: Historical Data, Nursing Documentation, Vital Signs Vital Signs: Last Vital Signs Temp 98.4 F 10/28/18 08:38 Pulse 85 10/28/18 08:38 Resp 16 10/28/18 08:38 BP 123/87 10/28/18 08:38 Pulse Ox 97 10/28/18 08:38 - Medical History PMH: Anxiety, HTN Denies: Kidney Stones, Chronic Kidney Disease - Surgical History Surgical History: Cholecystectomy, - Family History Family History: States: Unknown Family Hx - Social History Current smoker - smoking cessation education provided: No Ex-Smoker (has not smoked in the last 12 months): Yes Alcohol: None Drugs: Cannabis - Home Medications Home Medications: Ambulatory Orders Medication Instructions Recorded amLODIPine [Norvasc] 5 mg PO DAILY #14 tab 08/28/16 RX: Metronidazole 500 mg PO BID #14 tablet 04/20/18 RX: metroNIDAZOLE [Flagyl] 500 mg PO BID #14 tab 04/20/18 Famotidine [Pepcid] 20 mg PO DAILY PRN #6 tab 08/17/18 Pantoprazole Sodium [Protonix] 40 mg PO DAILY 14 Days ect 08/22/18 RX: Ibuprofen [Motrin Tab] 400 mg PO Q6 PRN #10 tab 08/30/18 Acetaminophen [Acetaminophen 8 650 mg PO Q8 PRN #21 tablet.er 09/29/18 Hour] RX: Naproxen 500 mg PO BID PRN #20 tab 09/29/18 - Allergies Allergies/Adverse Reactions: Allergies Allergy/AdvReac Type Severity Reaction Status Date / Time No Known Allergies Allergy Verified 10/08/18 10:19 Review of Systems ROS Statement: Except As Marked, All Systems Reviewed And Found Negative Cardiovascular: Negative for: Chest Pain (resolved) Respiratory: Negative for: Shortness of Breath Gastrointestinal: Negative for: Nausea, Vomiting Neurological: Positive for: Headache (mild). Negative for: Weakness, Numbness Psych: Positive for: Anxiety Physical Exam - Reviewed Nursing Documentation Reviewed: Yes Vital Signs Reviewed: Yes - Physical Exam Appears: Positive for: No Acute Distress Head Exam: Positive for: ATRAUMATIC, NORMAL INSPECTION, NORMOCEPHALIC Skin: Positive for: Normal Color, Warm, Dry Eye Exam: Positive for: Normal appearance, EOMI, PERRL Neck: Positive for: Normal, Painless ROM, Supple Cardiovascular/Chest: Positive for: Regular Rate, Rhythm. Negative for: Murmur Respiratory: Positive for: Normal Breath Sounds (clear to auscultation). Negative for: Respiratory Distress Gastrointestinal/Abdominal: Positive for: Normal Exam, Soft. Negative for: Tenderness, Guarding, Rebound Back: Positive for: Normal Inspection. Negative for: L CVA Tenderness, R CVA Tenderness, Vertebral Tenderness Extremity: Positive for: Normal ROM (upper and lower extremities). Negative for: Tenderness, Calf Tenderness, Deformity, Swelling Neurologic/Psych: Positive for: Alert, Oriented. Negative for: Motor/Sensory Deficits - Laboratory Results Result Diagrams: 10/28/18 09:43 10/28/18 09:43 - ECG O2 Sat by Pulse Oximetry: 97 (RA) Pulse Ox Interpretation: Normal Medical Decision Making Medical Decision Making: Time: 08:59 Initial Impression: Cardiac work up, basic labs with Troponin. Ibuprofen for headache and discharge home. Initial Plan: --EKG --BMP --Troponin I --CBC w/ difference --Ibuprofen 600 mg PO --Reevaluation 10:25 Patient's labs are within normal limits and headache has improved. At this time patient requires no further medical treatment in the ED and is medically stable for discharge home. Patient will follow up with mental health clinic next week. Scribe Attestation: Documented by Jey Ramirez, acting as a scribe for Kirti Hopkins MD Provider Scribe Attestation: All medical record entries made by the Scribe were at my direction and personally dictated by me. I have reviewed the chart and agree that the record accurately reflects my personal performance of the history, physical exam, medical decision making, and the department course for this patient. I have also personally directed, reviewed, and agree with the discharge instructions and disposition. Disposition - Clinical Impression Clinical Impression: Anxiety disorder - Disposition Disposition: Routine/Home Disposition Time: 10:25 Condition: STABLE Additional Instructions: Follow up with mental health clinic within one week. Return to the emergency department if symptoms worsen or if new symptoms develop. Instructions: Anxiety, Adult (DC) Forms: [employer] (Hebrew) Print Language: FINNISH
[2018-10-28 10:01] LABS: BASO % 0.9 % (0.0-2.0); EOS # 0.3 K/uL (0.0-0.7); EOS % 5.8 % (0.0-4.0); HEMOGLOBIN 13.2 g/dL (12.0-16.0); LYMPH % 36.5 % (20.0-40.0); MEAN CORPUSCULAR HEMOGLOBIN 28.4 pg (27.0-31.0); MEAN PLATELET VOLUME 7.9 fl (7.2-11.7); MONO # 0.4 K/uL (0.0-0.8); MONO % 7.8 % (0.0-10.0); NEUT # 2.7 K/uL (1.8-7.0); NRBC % 0.1 % (0.0-0.0); RBC 4.67 Mil/uL (3.80-5.20); WHITE BLOOD COUNT 5.5 K/uL (4.8-10.8)
[2018-10-28 10:12] LABS: BLOOD UREA NITROGEN 19 mg/dl (7-17); CALCIUM 9.3 mg/dL (8.4-10.2); GFR NON-AFRICAN AMERICAN 57
[2018-10-28 10:36] VITALS: BP 128/86; PULSE 69; RESP 18
[2018-10-28 19:27] VITALS: O2SAT 97
== END 2018-10-28 10:40 | disposition home or self-care (01) ==
LOC: H.ER 08:33
DX: F41.9 Anxiety disorder, unspecified (principal); I10 Essential (primary) hypertension

== ENCOUNTER 2018-12-03 08:16 | Emergency (ER) | payer OTHER ==
[2018-12-03 08:24] VITALS: O2SAT 99; BMI 23.0
--- NOTE | 2018-12-03 08:50 | ED PDOC ---
HPI: CCC, URI, Sore Throat Time Seen by Provider: 12/03/18 08:33 Chief Complaint (Nursing): Cough, Cold, Congestion Chief Complaint (Provider): Cough, congestion History Per: Patient History/Exam Limitations: no limitations Have you had recent travel within the past 21 days to any of the following countries: [place], [place], [place] or [place]?: No Onset/Duration Of Symptoms: Days (3) Current Symptoms Are (Timing): Still Present Associated Symptoms: Cough, Nasal Congestion Additional History Per: Patient Additional Complaint(s): 33 yo female, otherwise well, comes to ER reporting nasal congestion x 3 days. She reports associated cough as well and has been taking over the counter med ications with no relief of symptoms. No fever, chills, chest pain, or shortness of breath. No additional complaints. PMD: None Past Medical History Reviewed: Historical Data, Nursing Documentation, Vital Signs Vital Signs: Last Vital Signs Temp 98.3 F 12/03/18 08:24 Pulse 93 H 12/03/18 08:24 Resp 18 12/03/18 08:24 BP 118/84 12/03/18 08:24 Pulse Ox 99 12/03/18 08:24 - Medical History PMH: Anxiety, HTN Denies: Kidney Stones, Chronic Kidney Disease - Surgical History Surgical History: Cholecystectomy, - Family History Family History: States: Unknown Family Hx - Home Medications Home Medications: Ambulatory Orders Medication Instructions Recorded amLODIPine [Norvasc] 5 mg PO DAILY #14 tab 08/28/16 Metronidazole 500 mg PO BID #14 tablet 04/20/18 metroNIDAZOLE [Flagyl] 500 mg PO BID #14 tab 04/20/18 Famotidine [Pepcid] 20 mg PO DAILY PRN #6 tab 08/17/18 Pantoprazole Sodium [Protonix] 40 mg PO DAILY 14 Days ect 08/22/18 Ibuprofen [Motrin Tab] 400 mg PO Q6 PRN #10 tab 08/30/18 Acetaminophen [Acetaminophen 8 650 mg PO Q8 PRN #21 tablet.er 09/29/18 Hour] Naproxen 500 mg PO BID PRN #20 tab 09/29/18 Fluticasone Propionate [Flonase] 1 spr IH DAILY 7 Days bottle 12/03/18 - Allergies Allergies/Adverse Reactions: Allergies Allergy/AdvReac Type Severity Reaction Status Date / Time No Known Allergies Allergy Verified 10/08/18 10:19 Review of Systems ROS Statement: Except As Marked, All Systems Reviewed And Found Negative Constitutional: Negative for: Fever, Chills ENT: Positive for: Nose Congestion Cardiovascular: Negative for: Chest Pain Respiratory: Positive for: Cough. Negative for: Shortness of Breath Physical Exam - Reviewed Nursing Documentation Reviewed: Yes Vital Signs Reviewed: Yes - Physical Exam Appears: Positive for: Non-toxic, No Acute Distress Head Exam: Positive for: ATRAUMATIC, NORMAL INSPECTION, NORMOCEPHALIC Skin: Positive for: Normal Color Eye Exam: Positive for: Normal appearance, EOMI, PERRL ENT: Positive for: Nasal Congestion. Negative for: Pharyngeal Erythema, Tonsillar Exudate, Tonsillar Swelling Neck: Positive for: Normal Cardiovascular/Chest: Positive for: Regular Rate, Rhythm. Negative for: Tachycardia Respiratory: Positive for: Normal Breath Sounds. Negative for: Wheezing Gastrointestinal/Abdominal: Positive for: Soft Back: Positive for: Normal Inspection Extremity: Positive for: Normal ROM. Negative for: Pedal Edema Neurological/Psych: Positive for: Awake, Alert - ECG O2 Sat by Pulse Oximetry: 99 (RA) Pulse Ox Interpretation: Normal Medical Decision Making Medical Decision Makinyo with cough, cold and congestion plan: -- Advised patient regarding over the counter medications like Claritin for symptomatic relief; patient requesting Flonase instead, adamantly stating this medication is the only one to provide relief. Patient to be given prescription for flonase, motrin and informed to follow up with PMD in 2-3 days. ScribeAttestation: Documented byKeli Jules, acting as a scribe for Andry Sharma MD. Provider ScribeAttestation: All medical record entries made by the Scribe were at my direction and personally dictated by me. I have reviewed the chart and agree that the record accurately reflects my personal performance of the history, physical exam, medical decision making, and the department course for this patient. I have also personally directed, reviewed, and agree with the discharge instructions and disposition. Disposition - Clinical Impression Clinical Impression: URI (upper respiratory infection) - Patient ED Disposition Is Patient to be Admitted: No - Disposition Referrals: [facility] [Outside] - 12/04/18 Disposition: Routine/Home Disposition Time: 08:20 Condition: STABLE Additional Instructions: Return if not better in 3 days. Prescriptions: Fluticasone Propionate [Flonase] 1 spr IH DAILY 7 Days bottle Instructions: Viral Upper Respiratory Infection, Adult (DC) Forms: [employer] (U[place]ayan), [facility] ED School/Work Excuse
[2018-12-03 09:18] VITALS: BP 128/78; PULSE 79; RESP 19; TEMP 97.7
== END 2018-12-03 09:19 | disposition home or self-care (01) ==
LOC: H.ER 08:16
DX: J06.9 Acute upper respiratory infection, unspecified (principal); F41.9 Anxiety disorder, unspecified; I10 Essential (primary) hypertension

== ENCOUNTER 2018-12-17 13:48 | Emergency (ER) | payer OTHER ==
[2018-12-17 13:48] VITALS: BMI 23.0
[2018-12-17 14:20] VITALS: BP 122/83; PULSE 71; RESP 16; TEMP 98.5; O2SAT 99
--- NOTE | 2018-12-17 14:59 | ED PDOC ---
Upper Extremity Pain/Injury Time Seen by Provider: 12/17/18 14:48 Chief Complaint (Nursing): Upper Extremity Problem/Injury Chief Complaint (Provider): Left Neck / Arm / Back Pain History Per: Patient History/Exam Limitations: no limitations Onset/Duration Of Symptoms: Days (x4) Current Symptoms Are (Timing): Still Present Additional Complaint(s): 33 year old female presents to the ED for evaluation of left sided neck pain radiating down into the shoulder and left back for the past four days worse with movement of left arm and turning, unrelieved by Tylenol. Patient notes she just woke up with the pain four days ago, but noticed she may have slept on her arm in a strange way that night. She reports having this type of muscle spasm pain before on her right side, and came to the ED for treatment. Otherwise, denies shortness of breath, chest pain, and numbness/ tingling. PMD: Imelda Lacy Past Medical History Reviewed: Historical Data, Nursing Documentation, Vital Signs Vital Signs: Last Vital Signs Temp 98.5 F 12/17/18 14:18 Pulse 71 12/17/18 14:18 Resp 16 12/17/18 14:18 BP 122/83 12/17/18 14:18 Pulse Ox 99 12/17/18 14:18 - Medical History PMH: Anxiety, HTN Denies: Kidney Stones, Chronic Kidney Disease - Surgical History Surgical History: Cholecystectomy, - Family History Family History: States: Unknown Family Hx - Social History Current smoker - smoking cessation education provided: No - Home Medications Home Medications: Ambulatory Orders Medication Instructions Recorded amLODIPine [Norvasc] 5 mg PO DAILY #14 tab 08/28/16 Metronidazole 500 mg PO BID #14 tablet 04/20/18 metroNIDAZOLE [Flagyl] 500 mg PO BID #14 tab 04/20/18 Famotidine [Pepcid] 20 mg PO DAILY PRN #6 tab 08/17/18 Pantoprazole Sodium [Protonix] 40 mg PO DAILY 14 Days ect 08/22/18 Ibuprofen [Motrin Tab] 400 mg PO Q6 PRN #10 tab 08/30/18 Acetaminophen [Acetaminophen 8 650 mg PO Q8 PRN #21 tablet.er 09/29/18 Hour] Naproxen 500 mg PO BID PRN #20 tab 09/29/18 Fluticasone Propionate [Flonase] 1 spr IH DAILY 7 Days bottle 12/03/18 Cyclobenzaprine [Cyclobenzaprine 10 mg PO Q8H PRN #15 tab 12/17/18 HCl] Ibuprofen [Motrin] 600 mg PO Q6H PRN #30 tab 12/17/18 - Allergies Allergies/Adverse Reactions: Allergies Allergy/AdvReac Type Severity Reaction Status Date / Time No Known Allergies Allergy Verified 12/17/18 14:18 Review of Systems ROS Statement: Except As Marked, All Systems Reviewed And Found Negative Cardiovascular: Negative for: Chest Pain Respiratory: Negative for: Shortness of Breath Musculoskeletal: Positive for: Neck Pain (left sided radiating down shoulder and into left side of back) Neurological: Negative for: Numbness (or tingling) Physical Exam - Reviewed Nursing Documentation Reviewed: Yes Vital Signs Reviewed: Yes - Physical Exam Appears: Positive for: No Acute Distress Head Exam: Positive for: ATRAUMATIC, NORMOCEPHALIC Skin: Positive for: Normal Color, Warm. Negative for: Rash Eye Exam: Positive for: Normal appearance Neck: Positive for: Normal, Painless ROM, Supple Cardiovascular/Chest: Positive for: Regular Rate, Rhythm Respiratory: Positive for: Normal Breath Sounds. Negative for: Respiratory Distress Pulses-Radial (L): 2+ Pulses-Radial (R): 2+ Gastrointestinal/Abdominal: Positive for: Normal Exam, Soft. Negative for: Tenderness Back: Positive for: Normal Inspection (no ecchymosis, erythema, or break in skin integrity), Other (tenderness to left sided trapezius) Extremity: Positive for: Normal ROM (of left upper extremity including shoulder), Capillary Refill (less than 2 seconds) Neurological/Psych: Positive for: Awake, Alert, Oriented (x3). Negative for: Motor/Sensory Deficits (sensation intact throughout with no numbness or tingling) - ECG O2 Sat by Pulse Oximetry: 99 (RA) Pulse Ox Interpretation: Normal Medical Decision Making Medical Decision Making: Time: 1453 Initial Impression: left trapezium pain Initial Plan: --U-preg --Flexeril 10mg PO / Toradol 30mg IM (pt not driving home) --Reevaluation 1600 Upon reevaluation, patient reports improved pain and would like to go home. Scripts for Motrin and Flexeril given with precaution not to drive on Flexeril as it may make her drowsy. Patient states she understands and does not have her license anyway, so this is not a problem. Return to ED instructions given and all questions answered. Stable for discharge with diagnosis of muscle spasm of trapezius. Scribe Attestation: Documented by Florence Delgado, acting as a scribe for Kelsey Batista APN. Provider Scribe Attestation: All medical record entries made by the Scribe were at my direction and personally dictated by me. I have reviewed the chart and agree that the record accurately reflects my personal performance of the history, physical exam, medical decision making, and the department course for this patient. I have also personally directed, reviewed, and agree with the discharge instructions and disposition. Disposition - Clinical Impression Clinical Impression: Trapezius muscle spasm - Patient ED Disposition Is Patient to be Admitted: No Counseled Patient/Family Regarding: Diagnosis, Rx Given - Disposition Disposition: Routine/Home Disposition Time: 16:03 Condition: IMPROVED Prescriptions: Cyclobenzaprine [Cyclobenzaprine HCl] 10 mg PO Q8H PRN #15 tab PRN Reason: Muscle Spasm Ibuprofen [Motrin] 600 mg PO Q6H PRN #30 tab PRN Reason: Pain, Moderate (4-7) Instructions: Muscle Spasms (DC) - POA Present On Arrival: None
[2018-12-17 16:29] LABS: SQUAMOUS EPITHIAL 37 /hpf (0-5); URINE BACTERIA OCC (<OCC); URINE BILIRUBIN NEGATIVE (NEGATIVE); URINE BLOOD NEGATIVE (NEGATIVE); URINE CLARITY CLOUDY (Clear); URINE COLOR YELLOW (YELLOW); URINE GLUCOSE (UA) NEG (NEGATIVE); URINE LEUKOCYTE ESTERASE TRACE Leu/uL (Negative); URINE PROTEIN 30 mg/dL (NEGATIVE)
== END 2018-12-17 16:20 | disposition home or self-care (01) ==
LOC: H.ER 13:48
DX: M62.830 Muscle spasm of back (principal)
CPT/HCPCS: 81003; 81025; 96372; 99283; J1885